=== PATIENT | male | born 1970 | race Caucasian/White ===

== ENCOUNTER → 2020-01-06 15:30 | Outpatient (BNVA) | payer BC, SELFPAY | PROVIDERS: PCP Internal Medicine; Referring Provider Internal Medicine; Visit Provider Surgery Vascular Surgery | DX: Z76.89 Persons encountering health services in other specified circumstances (principal) ==

== ENCOUNTER → 2020-02-25 08:38 | Outpatient (BNVA) | payer BC, SELFPAY | PROVIDERS: PCP Internal Medicine; Referring Provider Internal Medicine; Visit Provider Surgery Vascular Surgery | DX: I83.12 Varicose veins of left lower extremity with inflammation (principal) | CPT/HCPCS: 36482 ==

== ENCOUNTER 2020-02-28 08:09 | Outpatient (REF) | payer BC, SELFPAY ==
--- NOTE | 2020-02-28 | US_ITS ---
EXAMINATION: US VENOUS ULTRASOUND WITH DOPPLER LOWER EXTREMITY, LEFT CLINICAL INFORMATION: Post venous procedure 3 days ago COMPARISON: Previous exam 02/23/2019 TECHNIQUE: Ultrasound of the deep veins is performed from the hip to the calf with compression sonography and color and pulse Doppler assessment. Spectral analysis with color-flow imaging is performed. FINDINGS: There is echogenic material seen in the left greater saphenous vein post venous procedure. This is 4.2 cm from the saphenofemoral junction. The visualized common femoral vein, superficial femoral vein, profunda femoral vein, popliteal vein, and the trifurcation region shows no evidence of deep venous thrombosis. There is no significant popliteal fossa cyst. There is a left inguinal lymphadenopathy. US/US venous duplex LE LT IMPRESSION: No DVT demonstrated in the left lower extremity. Echogenic material in the left greater saphenous vein 4.2 cm from the second the saphenofemoral junction post venous procedure.
== END 2020-02-28 08:10 | disposition home or self-care (01) ==
LOC: HO.US 08:09
PROVIDERS: PCP Internal Medicine; Visit Provider Surgery Vascular Surgery
DX: M79.604 Pain in right leg (principal)
CPT/HCPCS: 93971

== ENCOUNTER → 2020-03-09 14:56 | Outpatient (BNVA) | payer BC, SELFPAY | PROVIDERS: PCP Internal Medicine; Visit Provider Surgery Vascular Surgery | DX: Z76.89 Persons encountering health services in other specified circumstances (principal) ==

== ENCOUNTER → 2020-03-10 14:44 | Outpatient (BNVA) | payer BC, SELFPAY | PROVIDERS: PCP Internal Medicine; Referring Provider Internal Medicine; Visit Provider Surgery Vascular Surgery | DX: I83.891 Varicose veins of right lower extremity with other complications (principal) | CPT/HCPCS: 36482 ==

== ENCOUNTER 2020-03-13 15:52 | Outpatient (REF) | payer BC, SELFPAY ==
--- NOTE | 2020-03-13 | US_ITS ---
EXAMINATION: US VENOUS ULTRASOUND WITH DOPPLER LOWER EXTREMITY, RIGHT CLINICAL INFORMATION: Post venous seal. Rule out DVT. COMPARISON: Previous exam most recent February 2019 TECHNIQUE: Ultrasound of the deep veins is performed from the hip to the calf with compression sonography and color and pulse Doppler assessment. Spectral analysis with color-flow imaging is performed. FINDINGS: There is normal venous compression and respiratory variation and augmented flow. The visualized common femoral vein, superficial femoral vein, profunda femoral vein, popliteal vein, and the trifurcation region shows no evidence of deep venous thrombosis. There is echogenic material seen in the right greater saphenous vein post venous seal procedure. This is 5 cm from the saphenofemoral junction. There is no significant popliteal fossa cyst. US/US venous duplex LE RT IMPRESSION: No DVT demonstrated in the right lower extremity.
== END 2020-03-13 15:53 | disposition home or self-care (01) ==
LOC: HO.US 15:52
PROVIDERS: Visit Provider Surgery Vascular Surgery
DX: M79.604 Pain in right leg (principal)
CPT/HCPCS: 93971

== ENCOUNTER 2021-06-01 18:05 | Emergency (ER) | payer MEDICAID, SELFPAY ==
[2021-06-01 18:28] VITALS: BP 123/72; PULSE 95; RESP 20; TEMP 36.8; O2SAT 96; BMI 37.2
--- NOTE | 2021-06-01 19:11 | ED.ALLEREA ---
HPI - Allergic Reaction General Chief complaint: Allergic Reaction <Amber MunozGRISEL - Last Filed: 06/01/21 20:50> Stated complaint: severe rash spreading all over body <Amber MunozGRISEL - Last Filed: 06/01/21 20:50> Time Seen by Provider: 06/01/21 19:09 <Amber Vizcaino GRISEL Munoz - Last Filed: 06/01/21 20:50> Source: patient <Amber MunozGRISEL - Last Filed: 06/01/21 20:50> Mode of arrival: ambulatory <Amber MunozGRISEL - Last Filed: 06/01/21 20:50> Limitations: no limitations <Amber MunozGRISEL - Last Filed: 06/01/21 20:50> History of Present Illness HPI narrative: Patient is a 50-year-old male with a past medical history of type 1 diabetes. He presents emergency department for evaluation of a diffuse body rash. He states for about 2 weeks he has had a red in itching rash to the bilateral lower extremities from his knees with ankle the bilateral arms, chest, and upper back. He has been applying different lotions without significant improvement. He has not tried any cortisone cream for this. States no new medications, no new laundry detergents, body washes, recent antibiotic usage. In addition, he reports an area of pain, redness, and swelling to his right lower abdomen where a previous continuous glucose monitor was placed. <Amber FossGRISEL macdonald - Last Filed: 06/01/21 20:50> Related Data Home medications: Home Medications Medication Instructions Recorded Confirmed amlodipine 10 mg tablet 10 mg PO DAILY 12/18/19 blood-glucose sensor #3 ea 12/18/19 blood-glucose transmitter #1 ea 12/18/19 carvedilol 3.125 mg tablet mg PO 12/18/19 collagenase clostridium histo. 250 TOPICAL 12/18/19 unit/gram topical ointment insulin glargine 100 unit/mL (3 35 unit SUBCUT BID 12/18/19 mL) subcutaneous pen insulin lispro 100 unit/mL unit SUBCUT 12/18/19 subcutaneous pen lisinopril 20 1 tab PO DAILY 12/18/19 mg-hydrochlorothiazide 12.5 mg tablet pen needle, diabetic 32 gauge x #50 ea 12/18/19 silver sulfadiazine 1 % topical applic TOPICAL 12/18/19 cream simvastatin 20 mg tablet 20 mg PO BEDTIME 12/18/19 sulfamethoxazole 800 1 tab PO BID 12/18/19 mg-trimethoprim 160 mg tablet Previous Rx's Medication Instructions Recorded doxycycline hyclate 100 mg capsule 100 mg PO BID 7 Days #14 cap 06/01/21 hydroxyzine HCl 25 mg tablet 25 mg PO TID PRN #14 tab 06/01/21 prednisone 20 mg tablet 40 mg PO DAILY 4 Days #8 tab 06/01/21 <Amber Munoz CNP - Last Filed: 06/01/21 20:50> Allergies/adverse reactions: Allergies Allergy/AdvReac Type Severity Reaction Status Date / Time penicillin G Allergy Unknown Unknown Verified 06/01/21 18:27 <Amber Munoz CNP - Last Filed: 06/01/21 20:50> Review of Systems Review of Systems: Constitutional : No Fever, No Chills ENT/Mouth : No oral swelling, No Hoarseness, No Swallowing Difficulty Eyes: No Eye Pain, No Swelling, No Redness Cardiovascular : No Chest Pain, No SOB Respiratory : No Cough, No Sputum, No Wheezing, No Smoke Exposure, No Dyspnea Gastrointestinal : No Nausea, No Vomiting, No Diarrhea, No abdominal Pain Genitourinary : No Dysuria, No Urinary Frequency, No Hematuria Musculoskeletal : No joint pain, No Myalgias, No Joint Swelling Skin : No Skin Lesions, positive rash Neuro : No Weakness, No Numbness, No Headache Psych : No Anxiety/Panic, No Depression Heme/Lymph: No Bruising, No Lymphadenopathy Endocrine : No Polyuria, No Polydipsia All other systems reviewed and are negative <Amber Munoz CNP - Last Filed: 06/01/21 20:50> ON LICENSE OF [facility] Past Medical History Attestation statement: The following information was validated with the patient. <Amber Munoz CNP - Last Filed: 06/01/21 20:50> Source: old records reviewed <Amber Munoz CNP - Last Filed: 06/01/21 20:50> Social History Social History: Social History Advance Directives: No Advance Directives Information Provided: No <Amber Munoz CNP - Last Filed: 06/01/21 20:50> Physical Exam ED Vital Signs: Vital Signs - 24 hr 06/01/21 18:28 06/01/21 20:56 Temperature 98.3 F 97.8 F Pulse Rate 95 83 Respiratory Rate 20 18 Blood Pressure 123/72 133/61 Pulse Oximetry 96 94 BMI result Body Mass Index 37.2 Vital signs have been reviewed as normal and appeared to be correct. Blood pressure normal.? Heart rate normal.? Respiration rate normal. Temperature normal.? Oxygen saturation normal. <Amber Munoz CNP - Last Filed: 06/01/21 20:50> Appearance: Alert.?Oriented to person, place and time. No acute distress.?Normal affect. Eyes: Pupils equal, round and reactive to light.? ENT: Pharynx normal. no intraoral lesions Neck: Normal inspection.? Neck supple.?? CVS: Heart sounds normal. Normal heart rate and rhythm.? Pulses normal.?? Respiratory: No respiratory distress.? Lung sounds clear to auscultation bilaterally?? Abdomen: Soft and non-tender. Normoactive bowel sounds. No pulsatile mass.?? Skin: Maculopapular rash to the bilateral arms, anterior chest, upper back, bilateral lower extremities from knee to ankle. Linear abrasions from scratching. Right lower abdomen with 4 cm X 2 cm erythematous indurated area consistent with cellulitis.?? Extremities: No lower extremity edema.? No calf ttp? Neuro: Moves all extremities spontaneously. Sensation intact bilaterally. CN II-XII intact. No focal neuro deficits. Ambulates with normal steady gait. <Amber Munoz CNP - Last Filed: 06/01/21 20:50> Course Course Course Narrative: Patient is a 50-year-old male being evaluated for a diffuse body rash. This time, it is unclear the exact cause of his rash, however there is no acute concern for angio edema, urticaria, anaphylaxis he is stable, no respiratory distress, speaking in clear full sentences and managing secretions appropriately. History and physical exam are not consistent with Kedar Todd syndrome, erythema multiform, necrotizing fasciitis, no meningismus to suggest meningitis. Discussed with patient plan of care for discharge home with doxycycline for treatment of cellulitis to the abdomen, hydroxyzine for pruritis, and prednisone daily for 5 days for his rash, discussed possible hyperglycemia that was associated with steroid usage, and may require additional adjustments of his continuous insulin infusion. Advised patient to contact primary care provider to schedule follow-up appointment within 3 days. discussed reasons to return to the emergency department <Amebr Munoz CNP - Last Filed: 06/01/21 20:50> MDM - Allergic Reaction Lab Data Result diagrams: : 06/01/21 19:34 06/01/21 19:34 <Amber Munoz CNP - Last Filed: 06/01/21 20:50> Labs: Lab Results 06/01/21 06/01/21 Range/Units 19:34 19:34 WBC 10.5 (4.8-10.8) X10*3/uL RBC 5.11 (4.60-5.80) X10*6/uL Hgb 14.7 (14.0-18.0) g/dl Hct 43.0 (42.0-52.0) % MCV 84.1 (80.0-98.0) fL MCH 28.8 (27.0-33.0) pg MCHC 34.2 (31.0-36.0) g/dl RDW 12.8 (11.0-16.0) % Plt Count 281 (160-400) X10*3/uL MPV 9.7 (9.4-12.4) fL Immature Gran % (Auto) 0.5 H (0.0-0.4) % Neut % (Auto) 63.0 (45-73) % Lymph % (Auto) 20.2 (20-40) % Turner % (Auto) 9.7 (2-11) % Eos % (Auto) 5.7 H (0-4) % Baso % (Auto) 0.9 (0-2) % Lymph # (Auto) 2.1 (1.2-4.9) X10*3/uL Turner # (Auto) 1.0 (0.1-1.2) X10*3/uL Eos # (Auto) 0.6 H (0.0-0.4) X10*3/uL Baso # (Auto) 0.1 (0.0-0.2) X10*3/uL Abs Immat Gran (auto) 0.05 H (0.00-0.03) X10*3/uL Absolute Neuts (auto) 6.6 (2.0-8.3) x10*3/uL Absolute Nucleated RBC 0.000 (0.0-0.012) X10*3/uL Nucleated RBC % (auto) 0.0 (0.0-0.2) /100WBC Sodium 141 (135-145) mmol/L Potassium 3.7 (3.3-5.1) mmol/L Chloride 104 (96-108) mmol/L Carbon Dioxide 28 (22-29) mmol/L Anion Gap 13 (12-20) BUN 18 H (9-16) mg/dL Creatinine 0.83 (0.5-1.4) mg/dL Estim Creat Clear Calc 150.1 Estimated GFR > 60 Random Glucose 159 H (60-115) mg/dL Calcium 9.3 (8.4-10.2) mg/dL Total Bilirubin 0.5 (0.0-1.0) mg/dL AST 18 (5-37) U/L ALT 17 (0-40) U/L Alkaline Phosphatase 101 (39-117) U/L Total Protein 7.4 (6.5-8.0) g/dL Albumin 4.2 (3.5-5.0) g/dL <Amber Munoz CNP - Last Filed: 06/01/21 20:50> Discharge Plan Discharge Clinical Impression: Generalized maculopapular rash, Cellulitis <Amber Munoz CNP - Last Filed: 06/01/21 20:50> Patient Disposition: Home, Self-Care <Amber Munoz CNP - Last Filed: 06/01/21 20:50> Instructions: Cellulitis (ED), Acute Rash (ED) <Amber Munoz CNP - Last Filed: 06/01/21 20:50> Additional Instructions: You are being treated for a rash present to your chest arms and legs with prednisone 40 mg which you will take once a day for total of 5 days, you were given the 1st dose while you were in the emergency department. Please be aware that your blood sugar levels may rise higher than normal due to taking the prednisone, you may require adjustment of your insulin for this. You may take hydroxyzine as needed for itching, although it may make you drowsy similar to Benadryl, you should not take this medication while driving or while working. In addition, your being treated for cellulitis, a skin infection on your abdomen, where your previous glucose monitor was. Please take doxycycline twice a day for 7 days, take the full course of the antibiotics, take with food to prevent upset stomach. Please return to the emergency department with any new or worsening symptoms. Should you develop hoarseness of your voice, feeling of your throat closing, sore throat, difficulty breathing, shortness of breath, chest pain please come back to the emergency department immediately. Please contact your primary care provider to schedule a follow-up appointment for early next week. <Amber Munoz CNP - Last Filed: 06/01/21 20:50> Prescriptions: New doxycycline hyclate 100 mg capsule 100 mg PO BID 7 Days Qty: 14 0RF prednisone 20 mg tablet 40 mg PO DAILY 4 Days Qty: 8 0RF hydroxyzine HCl 25 mg tablet 25 mg PO TID PRN (Reason: itching) Qty: 14 0RF <Amber Munoz CNP - Last Filed: 06/01/21 20:50> Interventions: ED Discharge Assessment Last Done: 06/01/21 21:29 <Amber Munoz CNP - Last Filed: 06/01/21 20:50> Discharge Date/Time: 06/01/21 21:30 <Amber Munoz CNP - Last Filed: 06/01/21 20:50>
[2021-06-01] MEDS: predniSONE 20 MG TABLET 40 MG PO (19:28)
[2021-06-01 19:39] LABS: MANUAL DIFF FLAG NO
[2021-06-01 19:41] LABS: Basophils Absolute Auto 0.1 X10*3/uL (0.0-0.2); Basophils Percent Auto 0.9 % (0-2); Eosinophils Absolute Auto 0.6 X10*3/uL (0.0-0.4); Eosinophils Percent Auto 5.7 % (0-4); Hemoglobin 14.7 g/dl (14.0-18.0); Imm Gran Abs Auto 0.05 X10*3/uL (0.00-0.03); Imm Gran Pct Auto 0.5 % (0.0-0.4); Lymphocytes Absolute Auto 2.1 X10*3/uL (1.2-4.9); Lymphocytes Percent Auto 20.2 % (20-40); Mean Corpuscular HGB Conc 34.2 g/dl (31.0-36.0); Mean Corpuscular Hemoglobin 28.8 pg (27.0-33.0); Mean Corpuscular Volume 84.1 fL (80.0-98.0); Mean Platelet Volume 9.7 fL (9.4-12.4); Monocytes Percent Auto 9.7 % (2-11); Neutrophils Absolute Auto 6.6 x10*3/uL (2.0-8.3); Platelet Count 281 X10*3/uL (160-400); Red Blood Count 5.11 X10*6/uL (4.60-5.80); Red Cell Distribution Width 12.8 % (11.0-16.0); White Blood Count 10.5 X10*3/uL (4.8-10.8)
[2021-06-01 20:40] LABS: Alanine Aminotransferase 17 U/L (0-40); Albumin Level 4.2 g/dL (3.5-5.0); Alkaline Phosphatase 101 U/L (39-117); Anion Gap 13 (12-20); Aspartate Amino Transferase 18 U/L (5-37); Bilirubin Total 0.5 mg/dL (0.0-1.0); Blood Urea Nitrogen 18 mg/dL (9-16); Calcium 9.3 mg/dL (8.4-10.2); Carbon Dioxide 28 mmol/L (22-29); Chloride 104 mmol/L (96-108); Creatinine Clr Calc Pharmacy 150.1; Estimated Glomerular Filt Rate > 60; Glucose Random 159 mg/dL (60-115); Potassium 3.7 mmol/L (3.3-5.1); Sodium 141 mmol/L (135-145); Total Protein 7.4 g/dL (6.5-8.0)
[2021-06-01 20:56] VITALS: BP 133/61; PULSE 83; RESP 18; TEMP 36.6; O2SAT 94
== END 2021-06-01 21:30 | disposition home or self-care (01) ==
PROVIDERS: Nurse Practitioner Family; Emergency Provider Emergency Medicine; PCP Nurse Practitioner Family
DX: L03.311 Cellulitis of abdominal wall (principal); R21 Rash and other nonspecific skin eruption; E10.9 Type 1 diabetes mellitus without complications
CPT/HCPCS: 36415; 80053; 85025; 99283; 99284

== ENCOUNTER 2021-11-11 10:46 | Emergency (ER) | payer OTHER, SELFPAY ==
--- NOTE | ~2021-11-11 | XR_ITS ---
EXAMINATION: XR KNEE, LEFT CLINICAL INFORMATION: Impact injury. COMPARISON: None TECHNIQUE: Four views of the left knee. FINDINGS: Bones and soft tissues are normal. No fracture or joint effusion. Alignment is anatomic. Joint spaces are well maintained. No abnormal soft tissue calcification. XR/XR knee LT 2V IMPRESSION: Unremarkable left knee.
[2021-11-11 12:18] VITALS: BP 141/78; PULSE 88; RESP 22; TEMP 36.3; O2SAT 97; BMI 36.2
[2021-11-11 15:12] VITALS: BP 132/69; PULSE 88; RESP 18; TEMP 36.8; O2SAT 95
--- NOTE | 2021-11-11 15:17 | ED_ITS ---
HPI - General Adult General Chief complaint: Extremity Injury, Lower Stated complaint: L leg pain Time Seen by Provider: 11/11/21 15:16 Source: patient Mode of arrival: ambulatory Limitations: no limitations History of Present Illness HPI narrative: Patient is a 51 year old male presenting to the emergency department today with left lower leg pain. Patient states that he works at [employer] and a feeding tub fell onto his left lower leg. Patient states that he has been able to ambulate but it seems to be getting worse. Patient denies any dizziness, lightheadedness, abdominal pain, nausea, vomiting, fever, chills, blurry vision, double vision, loss of vision, chest pain, difficulty breathing, shortness of breath, back pain, night sweats, pain with urination, increased urinary frequency, increased urinary urgency, blood in his urine or stool, syncope or a near syncopal episode, bowel incontinence, bladder incontinence, bowel retention, bladder retention, or any other complaints at this time. Onset (ago): day(s) (1) Location: left and lower extremity Radiation: non-radiation Severity: mild Severity scale (1-10): 2 Quality: dull Pain Consistency: constant Relieving factors: none Exacerbating factors: none Associated symptoms: denies other symptoms Treatments prior to arrival: none Related Data Home Medications Medication Instructions Recorded Confirmed amlodipine 10 mg tablet 10 mg PO DAILY 12/18/19 blood-glucose sensor #3 12/18/19 blood-glucose transmitter #1 12/18/19 carvedilol 3.125 mg tablet mg PO 12/18/19 collagenase clostridium histo. 250 topical 12/18/19 unit/gram topical ointment insulin glargine 100 unit/mL (3 35 unit subcut BID 12/18/19 mL) subcutaneous pen insulin lispro 100 unit/mL unit subcut 12/18/19 subcutaneous pen lisinopril 20 1 tab PO DAILY 12/18/19 mg-hydrochlorothiazide 12.5 mg tablet pen needle, diabetic 32 gauge x #50 ea 12/18/19 silver sulfadiazine 1 % topical applic topical 12/18/19 cream simvastatin 20 mg tablet 20 mg PO BEDTIME 12/18/19 sulfamethoxazole 800 1 tab PO BID 12/18/19 mg-trimethoprim 160 mg tablet Previous Rx's Medication Instructions Recorded doxycycline hyclate 100 mg capsule 100 mg PO BID 7 days #14 caps 06/01/21 hydroxyzine HCl 25 mg tablet 25 mg PO TID PRN itching #14 tabs 06/01/21 prednisone 20 mg tablet 40 mg PO DAILY 4 days #8 tabs 06/01/21 Allergies Allergy/AdvReac Type Severity Reaction Status Date / Time penicillin G Allergy Unknown Unknown Verified 06/01/21 18:27 Review of Systems Constitutional: Constitutional: Reports no additional constitutional complaints, Denies chills, Denies fever(s) and Denies night sweats Eyes: Eyes: Reports no additional eye complaints, Denies blurry vision, Denies change in vision, Denies diplopia, Denies eye discharge, Denies loss of vision and Denies eye pain ENT: Denies dizziness Cardiovascular: Cardiovascular: Reports no additional cardiovascular c omplaints, Denies chest pain, Denies lightheadedness, Denies Loss of Consciousness and Denies dyspnea Respiratory: Respiratory: Reports no additional respiratory complaints and Denies dyspnea Gastrointestinal: Gastrointestinal: Reports no additional gastrointestinal complaints, Denies abdominal pain, Denies melena, Denies hematochezia, Denies change in bowel habits and Denies change in stool character Genitourinary: Genitourinary: Reports no additional male genitourinary complaints, Denies hematuria, Denies oliguria, Denies difficulty urinating, Denies dysuria, Denies urinary frequency, Denies urinary hesitancy, Denies urinary incontinence and Denies urinary urgency Musculoskeletal: Musculoskeletal: Reports no additional musculoskeletal complaints, Denies numbness and Denies tingling Comments: left lower leg Neurologic: Denies dizziness, Denies loss of vision, Denies numbness and Denies tingling Psychiatric: Psychiatric: Reports no additional psychiatric complaints Endocrine: Endocrine: Reports no additional endocrine complaints Hematologic/Lymphatic: Hematologic/Lymphatic: Reports no additional hematologic/lymphatic complaints Allergic/Immunologic: Allergic/Immunologic: Reports no additional allergic/immunologic complaints PMFSH Past Medical History Attestation statement: The following information was validated with the patient. Source: old records reviewed Social History Social History Advance Directives: No Advance Directives Information Provided: No Physical Exam ED Vital Signs: Vital Signs - 24 hr 11/11/21 12:18 11/11/21 15:12 Temperature 97.4 F 98.3 F Pulse Rate 88 88 Respiratory Rate 22 H 18 Blood Pressure 141/78 H 132/69 Pulse Oximetry 97 95 Oxygen Delivery Method Room Air Room Air BMI result Body Mass Index 36.2 Const General: cooperative, no acute distress, alert and awake Nutritional Appearance: well nourished Orientation/consciousness: patient oriented x3 Limitations: no limitations HENMT Head: Yes normal to inspection and Yes atraumatic Ears: hearing grossly normal bilaterally and external ears normal General nose exam: Normal external nose present, no nasal discharge noted and no epistaxis Face and sinus: Yes normal facial exam, No abrasion and No laceration Mouth: Normal oral and palatal mucosa present, no drooling and no muffled voice Eyes General: appearance normal, both eyes and all related structures Periorbital: periorbital findings normal Eyelids: Yes eyelids normal Conjunctivae: conjunctivae normal Pupils: Equal, round and reactive pupils present EOM: EOMs intact bilaterally Neck Neck: Yes normal visual inspection, Yes full ROM and Yes no lymphadenopathy Chest Chest palpation & inspection: normal inspection of the chest Resp Effort & Inspection: normal respiratory effort and able to speak in complete sentences Auscultation: clear to auscultation bilaterally Cardio Rate: regular rate Rhythm: regular rhythm GI Inspection: Yes normal to inspection Skin Other: bilateral venous stasis dermatitis, chronic for the patient Neuro General: patient oriented x3 and moves all extremities Cranial nerves: Yes Equal, round and reactive pupils present Cognition (Neuro): normal cognition Motor exam (neuro): 5/5 motor strength present throughout Sensory Exam: Normal double simultaneous stimulation for sensation Coordination: [id number] test normal Extrem General: Yes normal to inspection, Yes full ROM and Yes capillary refill normal Psych Appearance: grossly normal Mental Status: mental status grossly normal Affect: normal affect Attitude: cooperative Thought process: Normal thought process present Thought content: Normal thought content present Insight: Good insight present (Psych) Procedures Orthopedic Splinting/Casting Injury #1: Side: left Lower Extremity Injury Location: knee Lower Extremity Immobilizer: knee immobilizer Other Orthopedic Equipment: crutches Medical Decision Making [facility] Narrative Medical decision making narrative: Patient is a 51 year old male presenting to the emergency department today with left lower leg pain. Patient's physical exam showed bilateral lower leg venous stasis dermatitis which is chronic for the patient but was otherwise unremarkable. Patient's left knee x-ray showed no acute process. I explained my physical exam findings as well as all test results to the patient. I answered all questions asked by the patient. Patient's left knee was placed in an immobilizer and the patient was given crutches with crutch instructions. Patient's PMS was intact prior to and after immobilizer placement. I stressed the importance of the patient taking his medication as prescribed. I stressed the importance of the patient following up with his primary care provider and an orthopedic provider. I stressed the importance of the patient returning to the emergency department immediately if his symptoms were to worsen or if he were to develop any dizziness, shortness of breath, difficulty breathing, chest pain, blurry vision, loss of vision, nausea, vomiting, abdominal pain, fever, chills, back pain, or any other complaints. Patient verbalized agreement and understanding with this treatment plan and discharge. Differential Diagnosis Differential Diagnosis: left lower leg pain Medical Records Medical records reviewed: Yes I reviewed the patient's medical records. Imaging Data Left knee x-ray: Attestation: I personally reviewed and interpreted this imaging study as follows: My impression: No acute process. Radiologist's impression: EXAMINATION: XR KNEE, LEFT CLINICAL INFORMATION: Impact injury.? COMPARISON: None? TECHNIQUE: Four views of the left knee. FINDINGS: Bones and soft tissues are normal. No fracture or joint effusion. Alignment is anatomic. Joint spaces are well maintained. No abnormal soft tissue calcification.? XR/XR knee LT 2V IMPRESSION: Unremarkable left knee. Dictated By: Yosef Carter MD Signed By: Electronically signed by Yosef Carter MD 11/11/21 1340 Discharge Plan Discharge Clinical Impression: Acute leg pain Patient Disposition: Home, Self-Care Instructions: Crutch Instructions (ED), Leg Pain (ED) Additional Instructions: Follow up with your primary care provider and your orthopedic provider. Return to the emergency department immediately if your symptoms worsen or if you develop any dizziness, shortness of breath, difficulty breathing, chest pain, blurry vision, loss of vision, nausea, vomiting, abdominal pain, fever, chills, back pain, or any other complaints. Prescriptions: No Action doxycycline hyclate 100 mg capsule 100 mg PO BID 7 Days Qty: 14 0RF prednisone 20 mg tablet 40 mg PO DAILY 4 Days Qty: 8 0RF hydroxyzine HCl 25 mg tablet 25 mg PO TID PRN (Reason: itching) Qty: 14 0RF Referrals: [facility] [place] [facility] [Provider Group] (Call to establish and follow up with an orthopedic provider. ) Louisa Jason DO [Primary Care Provider] - Stand Alone Forms: Work/School Release Interventions: ED Discharge Assessment Last Done: 11/11/21 16:06 Discharge Date/Time: 11/11/21 16:06 Print Language: Palauan
--- NOTE | 2021-11-11 15:58 | PC.NURSE ---
splint and crutch training by Leo ESPOSITO and Joeclin ABEBE
== END 2021-11-11 16:06 | disposition home or self-care (01) ==
PROVIDERS: Emergency Provider Emergency Medicine; PCP Internal Medicine
DX: M25.562 Pain in left knee (principal); Z79.899 Other long term (current) drug therapy
CPT/HCPCS: 29505; 73560; 99282; 99283

== ENCOUNTER 2022-05-29 13:16 | Emergency (ER) | payer OTHER, SELFPAY ==
--- NOTE | ~2022-05-29 | CT_ITS ---
EXAMINATION: CT HEAD WITHOUT CONTRAST CLINICAL INFORMATION: Sudden onset left-sided headaches. COMPARISON: No relevant prior imaging. TECHNIQUE: Contiguous axial imaging was performed from the skull base to vertex without intravenous administration of contrast. This CT examination was performed using dose optimization techniques as appropriate, variously including the following: *Automated exposure control *Adjustment of mA and/or kV according to patient size (this includes techniques or standardized protocols for targeted exams where dose is matched to indication/reason for exam; i.e. extremities or head) *Use of iterative reconstruction technique DLP: 848 mGy-cm FINDINGS: There is no acute intracranial hemorrhage or abnormal extra-axial collection. No intracranial mass effect midline shift. Lateral and third ventricles are normal. No hydrocephalus. Ponce-white matter differentiation is preserved and there is no evidence of acute territorial infarct. The calvarium and skull base are intact. Mastoid air cells and middle ear cavities are well aerated. No active paranasal sinus disease. CT/CT head/brain wo IV con IMPRESSION: Normal CT scan of the head.
--- NOTE | ~2022-05-29 | XR_ITS ---
EXAMINATION: XR CHEST CLINICAL INFORMATION: Short of breath COMPARISON: None TECHNIQUE: 2 views of the chest were obtained. FINDINGS: The lungs are well expanded. There is no focal consolidation, edema, or effusion. No pneumothorax. The cardiomediastinal silhouette is within normal limits. No acute osseous abnormality. XR/XR chest 2V IMPRESSION: Clear lungs.
[2022-05-29 13:25] VITALS: BP 186/73; PULSE 85; RESP 16; TEMP 36.5; O2SAT 98; BMI 36.8
--- NOTE | 2022-05-29 13:40 | ECG_ITS ---
Test Reason : sob Blood Pressure : / mmHG Vent. Rate : 083 BPM Atrial Rate : 083 BPM P-R Int : 126 ms QRS Dur : 092 ms QT Int : 402 ms P-R-T Axes : 043 050 056 degrees QTc Int : 472 ms Normal sinus rhythm Normal ECG No previous ECGs available Referred By: Ford Wan Electronically Signed By:ISSA MADSEN
--- NOTE | 2022-05-29 13:43 | ED.GENADULT ---
HPI - General Adult General Chief complaint: Headache Stated complaint: S/O LT SIDED HEADACHE,-BLURRED VISION,+DIZZY Time Seen by Provider: 05/29/22 13:27 Source: patient and old records reviewed Limitations: no limitations History of Present Illness HPI narrative: Patient with a history of longstanding hypertension and type 1 diabetes, presents with sudden-onset headache started approximately an hour prior to arrival. No prior history of headaches. He states it felt like someone punched him in the left side of his head. He states he was talking to customers at the [employer] at the time. No strenuous physical activity recently Was initially in his left temporal area but now feels is like a more dull pain in top of his head No neck pain He had some photophobia at the bank. No actual vision changes such as blurriness or visual defect. He denies any focal weakness. No recent traumas No recent fevers or chills. He does describe pain increased dyspnea with minimal exertion over the past few months. He describes some abdominal bloating which is new over the last few months as well. No nausea vomiting or abdominal pain. No significant pedal edema. He denies chest pain. No history of cardiac disease, congestive heart failure, liver disease, renal disease. No history of aneurysm for family history of aneurysm of which he is aware. Related Data Home Medications Medication Instructions Recorded Confirmed amlodipine 10 mg tablet 10 mg PO DAILY 12/18/19 blood-glucose sensor #3 ea 12/18/19 blood-glucose transmitter #1 ea 12/18/19 carvedilol 3.125 mg tablet mg PO 12/18/19 collagenase clostridium histo. 250 topical 12/18/19 unit/gram topical ointment insulin glargine 100 unit/mL (3 35 unit subcut BID 12/18/19 mL) subcutaneous pen insulin lispro 100 unit/mL unit subcut 12/18/19 subcutaneous pen lisinopril 20 1 tab PO DAILY 12/18/19 mg-hydrochlorothiazide 12.5 mg tablet pen needle, diabetic 32 gauge x #50 ea 12/18/19 silver sulfadiazine 1 % topical applic topical 12/18/19 cream simvastatin 20 mg tablet 20 mg PO BEDTIME 12/18/19 sulfamethoxazole 800 1 tab PO BID 12/18/19 mg-trimethoprim 160 mg tablet Previous Rx's Medication Instructions Recorded doxycycline hyclate 100 mg capsule 100 mg PO BID 7 days #14 caps 06/01/21 hydroxyzine HCl 25 mg tablet 25 mg PO TID PRN itching #14 tabs 06/01/21 prednisone 20 mg tablet 40 mg PO DAILY 4 days #8 tabs 06/01/21 Allergies Allergy/AdvReac Type Severity Reaction Status Date / Time penicillin G Allergy Unknown Unknown Verified 06/01/21 18:27 Review of Systems Constitutional: Comments: No fevers or chills. Some increased generalized fatigue and weight gain Eyes: Comments: Initially had some photophobia while he was still at work at the [employer]. Denies photophobia now. Cardiovascular: Comments: No chest pain Respiratory: Comments: Dyspnea with minimal exertion which is new over the last few months Gastrointestinal: Comments: Abdominal distension and bloating without pain or nausea or vomiting or diarrhea Musculoskeletal: Comments: No increased pedal edema. Chronic diabetic neuropathy Integumentary/Breasts: Comments: No rash Neurologic: Comments: Headache as mentioned. Left-sided without focal weakness. Sudden onset Hematologic/Lymphatic: Comments: No bleeding. He does not take aspirin or blood thinners [facility] Social History Social History Smoked in Last 30 Days: No Use of substances other than those prescribed or required for medical reasons: No Any prior treatment program specific to substance use: No Advance Directives: Yes Advance Directives Information Provided: No Advance Directives on File: No Physical Exam ED Vital Signs: Vital Signs - 24 hr 05/29/22 13:25 05/29/22 16:35 Temperature 97.7 F Pulse Rate 85 73 Respiratory Rate 16 18 Blood Pressure 186/73 H 154/77 H Pulse Oximetry 98 96 Oxygen Delivery Method Room Air Room Air BMI result Body Mass Index 36.8 Const Other: Awake alert. No acute distress. Vital signs stable but hypertensive at 186/73 HENGA Other: Normocephalic atraumatic. Scalp is nontender in the area where he complains of discomfort Eyes Other: Pupils equal round reactive to light. Extraocular muscles intact. No photophobia noted Neck Other: No meningismus. Full range of motion without difficulty Resp Other: Clear and equal bilaterally without wheezes rales or rhonchi Cardio Other: Regular rate and rhythm without murmurs rubs or gallops GI Other: Soft, nontender. Diffuse distension. Small soft 2.5 cm umbilical hernia, reducible. No significant tympany Skin Other: Warm pink and dry without rash. No jaundice Neuro Other: Nonfocal neuro exam Extrem Other: Bilateral chronic venous stasis changes without significant edema Medications Administered Discontinued Medications Generic Name Dose Route Start Last Admin Trade Name Kathleen PRN Reason Stop Dose Admin Acetaminophen 650 mg 05/29/22 13:40 05/29/22 14:06 Acetaminophen 325 Mg Tablet PO 05/29/22 13:41 650 mg ONCE ONE Administration Medical Decision Making Medical Decision Making [facility] Narrative: Patient with several different complaints. Main issue is sudden onset headache in a patient without a history of headaches. Intracranial hemorrhage especially subarachnoid hemorrhage is a concern. Given timeline, CT scan should be very sensitive with a very high negative predictive value. Will start with CT scan in general metabolic workup. He also has been having increased dyspnea and fatigue over the last several months with abdominal bloating. The differential diagnosis is broad and includes but not limited to congestive heart failure, liver disease, renal failure, deconditioning, hypothyroid, anemia Will start with broad workup including EKG, cardiac enzymes, x-ray, thyroid studies, metabolic panel, CBC white. 14:06. Chest x-ray is unremarkable by my interpretation. EKG shows normal sinus rhythm without ischemic changes. Normal EKG. By my interpretation 16:40. CT scan is normal. I discussed with patient sensitivity specificity of CT scan for intracranial hemorrhage specifically subarachnoid hemorrhage within 4 hours of presentation. We discussed risk benefit of lumbar puncture. At this time I do not feel the benefits of an LP outweigh the risk. Patient agrees. His pain is largely resolved after Tylenol. He is stable for discharge home Lab Data 05/29/22 14:32 05/29/22 14:24 Labs: Lab Results 05/29/22 05/29/22 05/29/22 Range/Units 14:19 14:20 14:20 WBC (4.8-10.8) X10*3/uL RBC (4.60-5.80) X10*6/uL Hgb (14.0-18.0) g/dl Hct (42.0-52.0) % MCV (80.0-98.0) fL MCH (27.0-33.0) pg MCHC (31.0-36.0) g/dl RDW (11.0-16.0) % Plt Count (160-400) X10*3/uL MPV (9.4-12.4) fL Immature Gran % (Auto) (0.0-0.4) % Neut % (Auto) (45-73) % Lymph % (Auto) (20-40) % [place] % (Auto) (2-11) % Eos % (Auto) (0-4) % Baso % (Auto) (0-2) % Lymph # (Auto) (1.2-4.9) X10*3/uL [place] # (Auto) (0.1-1.2) X10*3/uL Eos # (Auto) (0.0-0.4) X10*3/uL Baso # (Auto) (0.0-0.2) X10*3/uL Abs Immat Gran (auto) (0.00-0.03) X10*3/uL Absolute Neuts (auto) (2.0-8.3) x10*3/uL Absolute Nucleated RBC (0.0-0.012) X10*3/uL Nucleated RBC % (auto) (0.0-0.2) /100WBC PT 11.1 (10.0-13.1) SEC INR 1.0 (0.9-1.1) D-Dimer High Sensitivty 185 NG/ML Sodium (135-145) mmol/L Potassium (3.3-5.1) mmol/L Chloride (96-108) mmol/L Carbon Dioxide (22-29) mmol/L Anion Gap (12-20) BUN (9-16) mg/dL Creatinine (0.5-1.4) mg/dL Estim Creat Clear Calc Estimated GFR Random Glucose (60-115) mg/dL Calcium (8.4-10.2) mg/dL Total Bilirubin (0.0-1.0) mg/dL AST (5-37) U/L ALT (0-40) U/L Alkaline Phosphatase (39-117) U/L Ammonia 34 (13-55) umol/L Troponin I High Sens (<3.5-35.0) ng/L B-Natriuretic Peptide (<100) pg/mL Total Protein (6.5-8.0) g/dL Albumin (3.5-5.0) g/dL Lipase (8-78) U/L TSH 1.29 (0.32-4.0) uIU/mL Urine Color Urine Appearance Urine pH (5.0-9.0) Ur Specific [place] (1.005-1.025) Urine Protein (Neg-Trace) mg/dL Urine Glucose (UA) (Negative) mg/dL Urine Ketones (Negative) mg/dL Urine Blood (Negative) Urine Nitrite (Negative) Ur Leukocyte Esterase (Negative) COVID-19 (ÁNGELA) (Negative) COVID-19 Clin Com 05/29/22 05/29/22 05/29/22 Range/Units 14:22 14:24 14:24 WBC (4.8-10.8) X10*3/uL RBC (4.60-5.80) X10*6/uL Hgb (14.0-18.0) g/dl Hct (42.0-52.0) % MCV (80.0-98.0) fL MCH (27.0-33.0) pg MCHC (31.0-36.0) g/dl RDW (11.0-16.0) % Plt Count (160-400) X10*3/uL MPV (9.4-12.4) fL Immature Gran % (Auto) (0.0-0.4) % Neut % (Auto) (45-73) % Lymph % (Auto) (20-40) % [place] % (Auto) (2-11) % Eos % (Auto) (0-4) % Baso % (Auto) (0-2) % Lymph # (Auto) (1.2-4.9) X10*3/uL [place] # (Auto) (0.1-1.2) X10*3/uL Eos # (Auto) (0.0-0.4) X10*3/uL Baso # (Auto) (0.0-0.2) X10*3/uL Abs Immat Gran (auto) (0.00-0.03) X10*3/uL Absolute Neuts (auto) (2.0-8.3) x10*3/uL Absolute Nucleated RBC (0.0-0.012) X10*3/uL Nucleated RBC % (auto) (0.0-0.2) /100WBC PT (10.0-13.1) SEC INR (0.9-1.1) D-Dimer High Sensitivty NG/ML Sodium 141 (135-145) mmol/L Potassium 4.8 D (3.3-5.1) mmol/L Chloride 104 (96-108) mmol/L Carbon Dioxide 31 H (22-29) mmol/L Anion Gap 11 L (12-20) BUN 20 H (9-16) mg/dL Creatinine 0.99 (0.5-1.4) mg/dL Estim Creat Clear Calc 127.2 Estimated GFR > 60 Random Glucose 170 H (60-115) mg/dL Calcium 9.7 (8.4-10.2) mg/dL Total Bilirubin 0.4 (0.0-1.0) mg/dL AST 19 (5-37) U/L ALT 18 (0-40) U/L Alkaline Phosphatase 98 (39-117) U/L Ammonia (13-55) umol/L Troponin I High Sens < 3.5 (<3.5-35.0) ng/L B-Natriuretic Peptide (<100) pg/mL Total Protein 7.2 (6.5-8.0) g/dL Albumin 4.2 (3.5-5.0) g/dL Lipase 11 (8-78) U/L TSH (0.32-4.0) uIU/mL Urine Color Urine Appearance Urine pH (5.0-9.0) Ur Specific [place] (1.005-1.025) Urine Protein (Neg-Trace) mg/dL Urine Glucose (UA) (Negative) mg/dL Urine Ketones (Negative) mg/dL Urine Blood (Negative) Urine Nitrite (Negative) Ur Leukocyte Esterase (Negative) COVID-19 (ÁNGELA) Negative (Negative) COVID-19 Clin Com See Note 05/29/22 05/29/22 05/29/22 Range/Units 14:24 14:32 14:42 WBC 8.9 (4.8-10.8) X10*3/uL RBC 5.72 (4.60-5.80) X10*6/uL Hgb 16.1 (14.0-18.0) g/dl Hct 48.3 (42.0-52.0) % MCV 84.4 (80.0-98.0) fL MCH 28.1 (27.0-33.0) pg MCHC 33.3 (31.0-36.0) g/dl RDW 13.0 (11.0-16.0) % Plt Count 281 (160-400) X10*3/uL MPV 9.4 (9.4-12.4) fL Immature Gran % (Auto) 0.7 H (0.0-0.4) % Neut % (Auto) 65.8 (45-73) % Lymph % (Auto) 18.1 L (20-40) % [place] % (Auto) 11.4 H (2-11) % Eos % (Auto) 2.9 (0-4) % Baso % (Auto) 1.1 (0-2) % Lymph # (Auto) 1.6 (1.2-4.9) X10*3/uL [place] # (Auto) 1.0 (0.1-1.2) X10*3/uL Eos # (Auto) 0.3 (0.0-0.4) X10*3/uL Baso # (Auto) 0.1 (0.0-0.2) X10*3/uL Abs Immat Gran (auto) 0.06 H (0.00-0.03) X10*3/uL Absolute Neuts (auto) 5.8 (2.0-8.3) x10*3/uL Absolute Nucleated RBC 0.000 (0.0-0.012) X10*3/uL Nucleated RBC % (auto) 0.0 (0.0-0.2) /100WBC PT (10.0-13.1) SEC INR (0.9-1.1) D-Dimer High Sensitivty NG/ML Sodium (135-145) mmol/L Potassium (3.3-5.1) mmol/L Chloride (96-108) mmol/L Carbon Dioxide (22-29) mmol/L Anion Gap (12-20) BUN (9-16) mg/dL Creatinine (0.5-1.4) mg/dL Estim Creat Clear Calc Estimated GFR Random Glucose (60-115) mg/dL Calcium (8.4-10.2) mg/dL Total Bilirubin (0.0-1.0) mg/dL AST (5-37) U/L ALT (0-40) U/L Alkaline Phosphatase (39-117) U/L Ammonia (13-55) umol/L Troponin I High Sens (<3.5-35.0) ng/L B-Natriuretic Peptide < 10 (<100) pg/mL Total Protein (6.5-8.0) g/dL Albumin (3.5-5.0) g/dL Lipase (8-78) U/L TSH (0.32-4.0) uIU/mL Urine Color Yellow Urine Appearance Clear Urine pH 7.0 (5.0-9.0) Ur Specific [place] 1.015 (1.005-1.025) Urine Protein Negative (Neg-Trace) mg/dL Urine Glucose (UA) Negative (Negative) mg/dL Urine Ketones Negative (Negative) mg/dL Urine Blood Negative (Negative) Urine Nitrite Negative (Negative) Ur Leukocyte Esterase Negative (Negative) COVID-19 (ÁNGELA) (Negative) COVID-19 Clin Com Discharge Plan Discharge Clinical Impression: Headache Patient Disposition: Home, Self-Care Instructions: Acute Headache (ED) Prescriptions: No Action doxycycline hyclate 100 mg capsule 100 mg PO BID 7 Days Qty: 14 0RF prednisone 20 mg tablet 40 mg PO DAILY 4 Days Qty: 8 0RF hydroxyzine HCl 25 mg tablet 25 mg PO TID PRN (Reason: itching) Qty: 14 0RF Stand Alone Forms: Work/School Release
[2022-05-29] MEDS: Acetaminophen 325 MG TABLET 650 MG PO (14:06)
[2022-05-29 14:38] LABS: MANUAL DIFF FLAG NO
[2022-05-29 14:39] LABS: Basophils Absolute Auto 0.1 X10*3/uL (0.0-0.2); Basophils Percent Auto 1.1 % (0-2); Eosinophils Absolute Auto 0.3 X10*3/uL (0.0-0.4); Eosinophils Percent Auto 2.9 % (0-4); Hematocrit 48.3 % (42.0-52.0); Hemoglobin 16.1 g/dl (14.0-18.0); Imm Gran Abs Auto 0.06 X10*3/uL (0.00-0.03); Imm Gran Pct Auto 0.7 % (0.0-0.4); Lymphocytes Absolute Auto 1.6 X10*3/uL (1.2-4.9); Lymphocytes Percent Auto 18.1 % (20-40); Mean Corpuscular HGB Conc 33.3 g/dl (31.0-36.0); Mean Corpuscular Hemoglobin 28.1 pg (27.0-33.0); Mean Corpuscular Volume 84.4 fL (80.0-98.0); Mean Platelet Volume 9.4 fL (9.4-12.4); Monocytes Percent Auto 11.4 % (2-11); Neutrophils Absolute Auto 5.8 x10*3/uL (2.0-8.3); Neutrophils Percent Auto 65.8 % (45-73); Platelet Count 281 X10*3/uL (160-400); Red Blood Count 5.72 X10*6/uL (4.60-5.80); White Blood Count 8.9 X10*3/uL (4.8-10.8)
[2022-05-29 14:41] LABS: Ammonia 34 umol/L (13-55)
[2022-05-29 14:46] LABS: IDNOW Serial# BCCEAD1C
[2022-05-29 14:47] LABS: COVID-19 Test Negative (Negative)
[2022-05-29 14:51] LABS: Alanine Aminotransferase 18 U/L (0-40); Albumin Level 4.2 g/dL (3.5-5.0); Alkaline Phosphatase 98 U/L (39-117); Anion Gap 11 (12-20); Aspartate Amino Transferase 19 U/L (5-37); Bilirubin Total 0.4 mg/dL (0.0-1.0); Blood Urea Nitrogen 20 mg/dL (9-16); Calcium 9.7 mg/dL (8.4-10.2); Carbon Dioxide 31 mmol/L (22-29); Chloride 104 mmol/L (96-108); Creatinine Clr Calc Pharmacy 127.2; Estimated Glomerular Filt Rate > 60; Glucose Random 170 mg/dL (60-115); Lipase 11 U/L (8-78); Potassium 4.8 mmol/L (3.3-5.1); Sodium 141 mmol/L (135-145); Total Protein 7.2 g/dL (6.5-8.0)
[2022-05-29 14:52] LABS: Appearance Urine Clear; Color Urine Yellow; Glucose Urine UA Negative (Negative); Leukocyte Esterase Urine Negative (Negative); Nitrite Urine Negative (Negative); Specific Gravity - Urine 1.015 (1.005-1.025); Urine Blood Negative (Negative); Urine Ketones Negative (Negative); Urine Protein Negative (Neg-Trace)
[2022-05-29 14:56] LABS: B Type Natriuretic Peptide < 10 pg/mL (<100); Troponin-I High Sensitivity < 3.5 ng/L (<3.5-35.0)
[2022-05-29 15:07] LABS: Prothrombin Time 11.1 SEC (10.0-13.1)
[2022-05-29 15:08] LABS: D Dimer High Sensitivity 185 NG/ML
[2022-05-29 15:11] LABS: TSH reflex Free T4 1.29 uIU/mL (0.32-4.0)
--- NOTE | 2022-05-29 16:06 | PC.NURSE ---
assumed care of pt at 1600, pt resting quietly, reporting reduction in headache to 2/10, pt pending CT scan results - delay from radiology. no new orders at this time.
[2022-05-29 16:35] VITALS: BP 154/77; PULSE 73; RESP 18; O2SAT 96
--- NOTE | 2022-05-29 16:37 | PC.NURSE ---
pt a&ox3, vss - remains hypertensive, provider at bedside reviewing CT results, pt pending discharge.
== END 2022-05-29 17:05 | disposition home or self-care (01) ==
PROVIDERS: Emergency Provider Emergency Medicine; PCP Internal Medicine
DX: R51.9 Headache, unspecified (principal); R06.00 Dyspnea, unspecified; Z20.822 Contact with and (suspected) exposure to COVID-19; I10 Essential (primary) hypertension; E10.9 Type 1 diabetes mellitus without complications; Z79.4 Long term (current) use of insulin; Z79.899 Other long term (current) drug therapy
CPT/HCPCS: 36415; 70450; 71046; 80053; 81003; 82140; 83690; 83880; 84443; 84484; 85025; 85379; 85610; 87635; 93005; 99284; 99285

== ENCOUNTER 2022-10-24 20:32 | Inpatient (IN) | payer OTHER, MEDICAID, SELFPAY ==
--- NOTE | 2022-10-24 | ECG_ITS ---
Test Reason : N/V Blood Pressure : / mmHG Vent. Rate : 100 BPM Atrial Rate : 100 BPM P-R Int : 134 ms QRS Dur : 100 ms QT Int : 352 ms P-R-T Axes : 044 053 063 degrees QTc Int : 454 ms Normal sinus rhythm Possible Inferior infarct , age undetermined Abnormal ECG When compared with ECG of 29-MAY-2022 14:08, Nonspecific T wave abnormality now evident in Inferior leads Nonspecific T wave abnormality now evident in Anterolateral leads Referred By: Generic ED Physician Electronically Signed By:ISSA MADSEN
--- NOTE | ~2022-10-24 | CT_ITS ---
EXAMINATION: CT ANGIOGRAM OF THE CHEST WITH CONTRAST (CT PULMONARY ANGIOGRAM FOR PE) CT ABDOMEN/PELVIS WITH CONTRAST CLINICAL INFORMATION: Tachycardia, hypoxia, chest and abdominal pain. Abdominal distention, nausea and vomiting. COMPARISON: None TECHNIQUE: Prior to contrast administration, noncontrast localization images were obtained. Subsequently, multidetector volumetric imaging was performed from the thoracic inlet through the pubic symphysis following the administration of 85 mL Omnipaque 350 intravenous contrast. Postcontrast images of the chest were acquired during the pulmonary angiographic phase, while imaging through the abdomen and pelvis was performed during the portal venous phase. No contrast reaction reported Sagittal, coronal, and MIP oblique sagittal reformatted images were obtained on the CT workstation, uploaded to PACS, and reviewed. This CT examination was performed using dose optimization techniques as appropriate, variously including the following: *Automated exposure control *Adjustment of mA and/or kV according to patient size (this includes techniques or standardized protocols for targeted exams where dose is matched to indication/reason for exam; i.e. extremities or head) *Use of iterative reconstruction technique Total exam dose-length product 1757 mGy-cm FINDINGS: QUALITY OF STUDY/CONTRAST BOLUS: Satisfactory. PULMONARY ARTERIES: No central or segmental pulmonary emboli. THORACIC AORTA: No aneurysm or dissection. LUNG: Dependent subsegmental atelectasis present bilaterally, and within the right middle lobe. No acute pneumonic process. PLEURA: No pleural effusion or pneumothorax. MEDIASTINUM: Normal heart size. No pericardial effusion. No hilar or mediastinal lymphadenopathy. No evidence of septal bowing or right heart strain. Coronary calcifications present. CHEST WALL/AXILLA: No axillary or internal mammary lymphadenopathy. HEPATOBILIARY: Liver normal in size, contour and morphology. No suspicious lesions. No intra or extrahepatic biliary dilation. Cholelithiasis. PANCREAS: Unremarkable. SPLEEN: Unremarkable. ADRENAL GLANDS: Unremarkable. morphology demonstrating symmetric enhancement. No suspicious renal cysts or masses. No hydronephrosis or perinephric abnormality.. GASTROINTESTINAL TRACT: No bowel related abnormalities. PELVIC VISCERA: Unremarkable. LYMPH NODES: No lymphadenopathy. PERITONEUM/BODY WALL: No ascites. Omental fat-containing epigastric periumbilical and umbilical hernias without associated inflammation. Focal areas of subcutaneous fat stranding calcification within the ventral abdominal wall reflective fat necrosis related to prior trauma although previous injection (i.e. medication). VASCULAR STRUCTURES: Unremarkable. OSSEOUS STRUCTURES: No acute or suspicious osseous abnormalities. CT/CT abdomen pelvis w IV con IMPRESSION: * No pulmonary embolism. * No aortic aneurysm or dissection. * No acute pneumonic process. * Coronary calcifications. * No acute findings within the abdomen or pelvis. * Cholelithiasis. * Ventral abdominal hernias without herniation. VTE: negative.
[2022-10-24 20:48] VITALS: BP 136/58; PULSE 98; RESP 22; TEMP 36.5; O2SAT 96
[2022-10-24 20:49] LABS: Glucose, Whole Blood 143 mg/dL (60-115)
[2022-10-24 20:50] VITALS: BP 168/76; PULSE 118; O2SAT 97; BMI 39.0
--- NOTE | 2022-10-24 21:19 | PC.NURSE ---
Pt with room air oxygen saturation of 83%. Placed on 3L per nasal cannula. Primary RN and MAYUR to be made aware.
--- NOTE | 2022-10-24 21:45 | ED_ITS ---
HPI - Abdominal Pain General Chief Complaint: Abdominal Pain Stated Complaint: NAUSEOUS VOMITING Time Seen by Provider: 10/24/22 21:11 Source: patient and EMS Mode of arrival: EMS Limitations: no limitations History of Present Illness HPI narrative: Patient is a 52 old male who presents emergency department for evaluation of multiple complaints. Patient states that yesterday he was started on cephalexin for lower extremity cellulitis which has reportedly been recurrent. States he was last treated with antibiotics in May of 2022. He states that today he was feeling generally weak, ?so sick that he could not move? having nausea with vomiting, diffuse abdominal pain, abdominal distension, vague reports of chest pain. Denies fevers, chills, headache, neck pain, numbness or tingling of the extremities, diarrhea, constipation, bloody or dark stools, dysuria, urinary frequency/urgency/hesitancy. Denies personal history of DVT/PE. Related Data Home Medications Medication Instructions Recorded Confirmed amlodipine 10 mg tablet 10 mg PO DAILY 12/18/19 blood-glucose sensor #3 ea 12/18/19 blood-glucose transmitter #1 ea 12/18/19 carvedilol 3.125 mg tablet mg PO 12/18/19 collagenase clostridium histo. 250 topical 12/18/19 unit/gram topical ointment insulin glargine 100 unit/mL (3 35 unit subcut BID 12/18/19 mL) subcutaneous pen insulin lispro 100 unit/mL unit subcut 12/18/19 subcutaneous pen lisinopril 20 1 tab PO DAILY 12/18/19 mg-hydrochlorothiazide 12.5 mg tablet pen needle, diabetic 32 gauge x #50 ea 12/18/19 silver sulfadiazine 1 % topical applic topical 12/18/19 cream simvastatin 20 mg tablet 20 mg PO BEDTIME 12/18/19 sulfamethoxazole 800 1 tab PO BID 12/18/19 mg-trimethoprim 160 mg tablet Previous Rx's Medication Instructions Recorded doxycycline hyclate 100 mg capsule 100 mg PO BID 7 days #14 caps 06/01/21 hydroxyzine HCl 25 mg tablet 25 mg PO TID PRN itching #14 tabs 06/01/21 prednisone 20 mg tablet 40 mg PO DAILY 4 days #8 tabs 06/01/21 Allergies Allergy/AdvReac Type Severity Reaction Status Date / Time penicillin G Allergy Unknown Unknown Verified 06/01/21 18:27 PMFSH Social History Social History Advance Directives: No Advance Directives Information Provided: No Physical Exam ED Vital Signs: Vital Signs - 24 hr 10/24/22 20:48 10/24/22 22:14 10/24/22 22:00 Temperature 97.7 F Pulse Rate 98 109 H 110 H Respiratory Rate 22 H 20 20 Blood Pressure 136/58 L 169/78 H Pulse Oximetry 96 93 83 L Oxygen Delivery Method Room Air Nasal Cannula Room Air Oxygen Flow Rate 3 10/24/22 22:15 10/24/22 23:37 Temperature Pulse Rate 108 H 94 Respiratory Rate 20 20 Blood Pressure 164/75 H 158/73 H Pulse Oximetry 93 93 Oxygen Delivery Method Nasal Cannula Nasal Cannula Oxygen Flow Rate 3 4 BMI result Body Mass Index 39.0 Course Reevaluation(s) Reevaluation #1: CBC reveals leukocytosis with left shift. BMP overall unremarkable, glucose 115. Lactic acid 2.1. LFTs normal. Lipase normal. Troponin 5.9, EKG revealing a normal sinus rhythm with nonspecific T-wave abnormality, no acute ischemic findings. CT the chest abdomen pelvis revealing no pulmonary embolism, no acute cardiopulmonary process, no acute abdominal or pelvis process, presence of ventral abdominal hernias. COVID-19 testing pending Time: 23:51 Reevaluation #2: COVID-19 negative. Spoke with hospitalist, Dr. Batista accepts patient for admission to medicine service; acute hypoxic respiratory failure, sepsis, cellulitis Time: 00:45 Medical Decision Making Medical Decision Making MDM Narrative: Patient is a 52-year-old male with past medical history of hypertension, type 1 diabetes. 21:45 was my first contact with patient, generally he appears unwell and uncomfortable, pale, noted to be tachycardic, and he was on supplemental oxygen via nasal cannula which he does not wear at baseline. per nursing staff he was noted to be hypoxic at 83% on room air with a good pleath on the monitor, patient endorsing vague it reports of chest pain, but denying any shortness of breath. Abdomen is diffusely tender throughout, distended, notable reducible umbilical hernia. He has an insulin pump, and the glucose monitor present to the abdomen without signs of cellulitis. Currently meeting SIRS criteria; lactic acid and blood cultures to be obtained, Rocephin IV ordered. Differential Diagnosis Differential Diagnoses: The differential diagnosis associated with the presentation includes (Cellulitis, incarcerated hernia, diverticulitis, appendicitis, pancreatitis, cholecystitis, ACS, pulmonary embolism, pneumonia) Admission/Observation Consideration of admission/observation: Escalation of care including admission/observation considered (I considered admission for chest pain abdominal pain, see narrative above in addition to course narrative) Lab Data MDM Lab Attestation statement: I reviewed the patient's lab results. (See course narrative for further detail) 10/24/22 22:04 10/24/22 22:10 Labs: Lab Results 10/24/22 10/24/22 10/24/22 Range/Units 20:44 22:03 22:04 WBC 19.2 H (4.8-10.8) X10*3/uL RBC 5.24 (4.60-5.80) X10*6/uL Hgb 15.0 (14.0-18.0) g/dl Hct 45.6 (42.0-52.0) % MCV 87.0 (80.0-98.0) fL MCH 28.6 (27.0-33.0) pg MCHC 32.9 (31.0-36.0) g/dl RDW 13.0 (11.0-16.0) % Plt Count 237 (160-400) X10*3/uL MPV 10.4 (9.4-12.4) fL Immature Gran % (Auto) 0.6 H (0.0-0.4) % Neut % (Auto) 90.2 H (45-73) % Lymph % (Auto) 3.0 L (20-40) % [place] % (Auto) 5.5 (2-11) % Eos % (Auto) 0.2 (0-4) % Baso % (Auto) 0.5 (0-2) % Lymph # (Auto) 0.6 L (1.2-4.9) X10*3/uL [place] # (Auto) 1.1 (0.1-1.2) X10*3/uL Eos # (Auto) 0.0 (0.0-0.4) X10*3/uL Baso # (Auto) 0.1 (0.0-0.2) X10*3/uL Abs Immat Gran (auto) 0.12 H (0.00-0.03) X10*3/uL Absolute Neuts (auto) 17.3 H (2.0-8.3) x10*3/uL Absolute Nucleated RBC 0.000 (0.0-0.012) X10*3/uL Nucleated RBC % (auto) 0.0 (0.0-0.2) /100WBC Smear Tech's Comments VERIFIED Sodium (135-145) mmol/L Potassium (3.3-5.1) mmol/L Chloride (96-108) mmol/L Carbon Dioxide (22-29) mmol/L Anion Gap (12-20) BUN (9-16) mg/dL Creatinine (0.5-1.4) mg/dL Estim Creat Clear Calc Estimated GFR POC Glucose 143 H (60-115) mg/dL Random Glucose (60-115) mg/dL Lactic Acid (0.5-2.0) mmol/L Calcium (8.4-10.2) mg/dL Magnesium (1.6-2.6) mg/dL Total Bilirubin (0.0-1.0) mg/dL AST (5-37) U/L ALT (0-40) U/L Alkaline Phosphatase (39-117) U/L Troponin I High Sens 5.9 D (<3.5-35.0) ng/L Total Protein (6.5-8.0) g/dL Albumin (3.5-5.0) g/dL Lipase (8-78) U/L COVID-19 (ÁNGELA) (Negative) COVID-19 Clin Com 10/24/22 10/24/22 10/25/22 Range/Units 22:10 22:15 00:11 WBC (4.8-10.8) X10*3/uL RBC (4.60-5.80) X10*6/uL Hgb (14.0-18.0) g/dl Hct (42.0-52.0) % MCV (80.0-98.0) fL MCH (27.0-33.0) pg MCHC (31.0-36.0) g/dl RDW (11.0-16.0) % Plt Count (160-400) X10*3/uL MPV (9.4-12.4) fL Immature Gran % (Auto) (0.0-0.4) % Neut % (Auto) (45-73) % Lymph % (Auto) (20-40) % [place] % (Auto) (2-11) % Eos % (Auto) (0-4) % Baso % (Auto) (0-2) % Lymph # (Auto) (1.2-4.9) X10*3/uL [place] # (Auto) (0.1-1.2) X10*3/uL Eos # (Auto) (0.0-0.4) X10*3/uL Baso # (Auto) (0.0-0.2) X10*3/uL Abs Immat Gran (auto) (0.00-0.03) X10*3/uL Absolute Neuts (auto) (2.0-8.3) x10*3/uL Absolute Nucleated RBC (0.0-0.012) X10*3/uL Nucleated RBC % (auto) (0.0-0.2) /100WBC Smear Tech's Comments Sodium 142 (135-145) mmol/L Potassium 4.0 (3.3-5.1) mmol/L Chloride 106 (96-108) mmol/L Carbon Dioxide 19 L (22-29) mmol/L Anion Gap 21 H (12-20) BUN 17 H (9-16) mg/dL Creatinine 0.82 (0.5-1.4) mg/dL Estim Creat Clear Calc 156.3 Estimated GFR > 60 POC Glucose (60-115) mg/dL Random Glucose 115 (60-115) mg/dL Lactic Acid 2.1 H* (0.5-2.0) mmol/L Calcium 9.5 (8.4-10.2) mg/dL Magnesium 2.1 (1.6-2.6) mg/dL Total Bilirubin 0.7 (0.0-1.0) mg/dL AST 18 (5-37) U/L ALT 15 (0-40) U/L Alkaline Phosphatase 91 (39-117) U/L Troponin I High Sens (<3.5-35.0) ng/L Total Protein 7.8 (6.5-8.0) g/dL Albumin 4.2 (3.5-5.0) g/dL Lipase 13 (8-78) U/L COVID-19 (ÁNGELA) Negative (Negative) COVID-19 Clin Com See Note 10/25/22 Range/Units 00:25 WBC (4.8-10.8) X10*3/uL RBC (4.60-5.80) X10*6/uL Hgb (14.0-18.0) g/dl Hct (42.0-52.0) % MCV (80.0-98.0) fL MCH (27.0-33.0) pg MCHC (31.0-36.0) g/dl RDW (11.0-16.0) % Plt Count (160-400) X10*3/uL MPV (9.4-12.4) fL Immature Gran % (Auto) (0.0-0.4) % Neut % (Auto) (45-73) % Lymph % (Auto) (20-40) % [place] % (Auto) (2-11) % Eos % (Auto) (0-4) % Baso % (Auto) (0-2) % Lymph # (Auto) (1.2-4.9) X10*3/uL [place] # (Auto) (0.1-1.2) X10*3/uL Eos # (Auto) (0.0-0.4) X10*3/uL Baso # (Auto) (0.0-0.2) X10*3/uL Abs Immat Gran (auto) (0.00-0.03) X10*3/uL Absolute Neuts (auto) (2.0-8.3) x10*3/uL Absolute Nucleated RBC (0.0-0.012) X10*3/uL Nucleated RBC % (auto) (0.0-0.2) /100WBC Smear Tech's Comments Sodium (135-145) mmol/L Potassium (3.3-5.1) mmol/L Chloride (96-108) mmol/L Carbon Dioxide (22-29) mmol/L Anion Gap (12-20) BUN (9-16) mg/dL Creatinine (0.5-1.4) mg/dL Estim Creat Clear Calc Estimated GFR POC Glucose (60-115) mg/dL Random Glucose (60-115) mg/dL Lactic Acid 1.4 (0.5-2.0) mmol/L Calcium (8.4-10.2) mg/dL Magnesium (1.6-2.6) mg/dL Total Bilirubin (0.0-1.0) mg/dL AST (5-37) U/L ALT (0-40) U/L Alkaline Phosphatase (39-117) U/L Troponin I High Sens (<3.5-35.0) ng/L Total Protein (6.5-8.0) g/dL Albumin (3.5-5.0) g/dL Lipase (8-78) U/L COVID-19 (ÁNGELA) (Negative) COVID-19 Clin Com Independent Interpretation I performed an independent interpretation of an: EKG Interpretation: Rate: 100 Rhythm:? Normal sinus rhythm Normal P waves.? Normal DIANNE.?? Normal QRS complex.?? ST T wave :??No ST elevation, no ST depression qTC: 454 prior studies:? May 2022 The study has been interpreted contemporaneously by me. Radiology Impression Discussion of test interpretation with radiology: I have reviewed the radiologist's reading. Radiologist Impression: CT/CT angio chest PE protocol IMPRESSION: *? No pulmonary embolism. *? No aortic aneurysm or dissection. *? No acute pneumonic process. *? Coronary calcifications. *? No acute findings within the abdomen or pelvis. *? Cholelithiasis. *? Ventral abdominal hernias without herniation. Medications Administered Discontinued Medications Generic Name Dose Route Start Last Admin Trade Name Freq PRN Reason Stop Dose Admin Sodium Chloride 1,000 mls @ 999 mls/hr 10/24/22 21:45 10/24/22 23:34 Ns IV 10/24/22 22:45 Infused .Q1H1M ZAC Infusion Ceftriaxone Sodium 1 gm/ 50 mls @ 100 mls/hr 10/24/22 21:59 10/24/22 23:34 Sodium Chloride IV 10/24/22 22:28 Infused ONCE ONE Infusion Iohexol 85 ml 10/24/22 23:17 10/24/22 23:17 Iohexol 350 Mg/Ml 100 Ml Infus..Btl IV 10/24/22 23:18 85 ml ONCE ONE Administration Morphine Sulfate 4 mg 10/24/22 21:43 10/24/22 22:22 Morphine Sulfate 4 Mg/Ml Cartridge IVPUSH 10/24/22 21:44 4 mg ONCE ONE Administration Protocol Ondansetron HCl 4 mg 10/24/22 21:37 10/24/22 22:22 Ondansetron Hcl 4 Mg/2 Ml Vial IVPUSH 10/24/22 21:38 4 mg ONCE ONE Administration Discharge Plan Discharge Clinical Impression: Acute respiratory failure with hypoxia, Cellulitis of left lower extremity, Sepsis Patient Disposition: Admitted As Inpatient
[2022-10-24 22:00] VITALS: PULSE 110; RESP 20; O2SAT 83
[2022-10-24 22:14] VITALS: BP 169/78; PULSE 109; RESP 20; O2SAT 93
[2022-10-24 22:15] VITALS: BP 164/75; PULSE 108; RESP 20; O2SAT 93
[2022-10-24] MEDS: Morphine Sulfate 4 MG/ML CARTRIDGE IVPUSH (22:22)
[2022-10-24] MEDS: 0.9 % Sodium Chloride 1,000 ML 999 ML IV (22:22)
[2022-10-24] MEDS: ondansetron HCL 4 MG/2 ML VIAL IVPUSH (22:22)
[2022-10-24] MEDS: cefTRIAXone sodium 1 GM in 0.9 % Sodium Chloride 50 ML IV (22:22)
[2022-10-24 22:23] LABS: Basophils Absolute Auto 0.1 X10*3/uL (0.0-0.2); Basophils Percent Auto 0.5 % (0-2); Eosinophils Percent Auto 0.2 % (0-4); Hematocrit 45.6 % (42.0-52.0); Imm Gran Abs Auto 0.12 X10*3/uL (0.00-0.03); Imm Gran Pct Auto 0.6 % (0.0-0.4); Lymphocytes Absolute Auto 0.6 X10*3/uL (1.2-4.9); MANUAL DIFF FLAG SCAN; Mean Corpuscular HGB Conc 32.9 g/dl (31.0-36.0); Mean Corpuscular Hemoglobin 28.6 pg (27.0-33.0); Mean Platelet Volume 10.4 fL (9.4-12.4); Monocytes Absolute Auto 1.1 X10*3/uL (0.1-1.2); Monocytes Percent Auto 5.5 % (2-11); Neutrophils Absolute Auto 17.3 x10*3/uL (2.0-8.3); Neutrophils Percent Auto 90.2 % (45-73); Platelet Count 237 X10*3/uL (160-400); Red Blood Count 5.24 X10*6/uL (4.60-5.80); SCAN SMEAR FLAG 1; White Blood Count 19.2 X10*3/uL (4.8-10.8)
[2022-10-24 22:50] LABS: Alanine Aminotransferase 15 U/L (0-40); Albumin Level 4.2 g/dL (3.5-5.0); Alkaline Phosphatase 91 U/L (39-117); Anion Gap 21 (12-20); Aspartate Amino Transferase 18 U/L (5-37); Bilirubin Total 0.7 mg/dL (0.0-1.0); Blood Urea Nitrogen 17 mg/dL (9-16); Calcium 9.5 mg/dL (8.4-10.2); Carbon Dioxide 19 mmol/L (22-29); Chloride 106 mmol/L (96-108); Creatinine Clr Calc Pharmacy 156.3; Estimated Glomerular Filt Rate > 60; Glucose Random 115 mg/dL (60-115); Lipase 13 U/L (8-78); Magnesium 2.1 mg/dL (1.6-2.6); Sodium 142 mmol/L (135-145); Total Protein 7.8 g/dL (6.5-8.0)
[2022-10-24 22:53] LABS: SLIDE REVIEW VERIFIED
[2022-10-24 22:54] LABS: Lactic Acid 2.1 mmol/L (0.5-2.0)
[2022-10-24 22:57] LABS: Troponin-I High Sensitivity 5.9 ng/L (<3.5-35.0)
[2022-10-24] MEDS: iohexoL 350 MG/ML 100 ML INFUS..BTL 85 ML IV (23:17)
[2022-10-24 23:37] VITALS: BP 158/73; PULSE 94; RESP 20; O2SAT 93
[2022-10-25 00:19] LABS: Reflex Lactate? Lactic Acid Added
[2022-10-25 00:36] LABS: COVID-19 Test Negative (Negative); IDNOW Serial# 6674DD1D
[2022-10-25 00:41] LABS: Lactic Acid 1.4 mmol/L (0.5-2.0)
[2022-10-25 01:47] LABS: VBG Base Excess 0.5 mmol/L; VBG HCO3 25 mmol/L (22-26); VBG pCO2 40 mmHg; VBG pH 7.39 (7.32-7.43); VBG pO2 59 mmHg
[2022-10-25 01:56] LABS: Venous Blood Gas Refer to POC result
[2022-10-25 02:02] LABS: B Type Natriuretic Peptide 21 pg/mL (<100)
--- NOTE | 2022-10-25 02:18 | PM.IMHP ---
History of Present Illness Date of Service: 10/25/22 Chief Complaint: Leg infection This is a 52-year-old male with pertinent history of essential hypertension, insulin-dependent type 1 diabetes mellitus, mixed hyperlipidemia, venous stasis of lower extremities who presents to the emergency department for evaluation of redness, warmth and purulent drainage of lower extremities. Patient states he does have a history of recurrent bilateral lower extremity cellulitis. He noticed redness and warmth about 3 days prior to presentation. He called his PCP and was initiated on Keflex. The redness, warmth progressed with left extremity worse than the right. He also noticed purulent drainage from the right lower extremity. Also has been having chills, nausea, generalized malaise. He denies chest discomfort, palpitations, shortness of breath, changes in urinary or bowel habits. In the emergency department, patient was found to be septic and hypoxemic. Review of Systems Constitutional: Constitutional: Reports fatigue, Reports lethargy and Reports malaise Cardiovascular: Cardiovascular: Reports no additional cardiovascular complaints Respiratory: Respiratory: Reports no additional respiratory complaints Gastrointestinal: Gastrointestinal: Reports no additional gastrointestinal complaints Genitourinary: Genitourinary: Reports no additional male genitourinary complaints Endocrine: Endocrine: Reports fatigue PMFSH Medical History Essential hypertension Mixed hyperlipidemia Type 1 diabetes mellitus Varicose veins of left lower extremity with inflammation Varicose veins of right lower extremity with inflammation Pertinent family history: No family history of early CAD Social History Advance Directives: No Advance Directives Information Provided: No Meds Allergies Allergy/AdvReac Type Severity Reaction Status Date / Time penicillin G Allergy Unknown Unknown Verified 06/01/21 18:27 Active Medications: Current Medications Pharmacy Consult (Consult Rx Perform Med Rec) 1 each MISCELLANE ONCE PRN PRN Reason: Consult order Home Medications Medication Instructions Recorded Confirmed Last Taken Type amlodipine 10 mg tablet 10 mg PO DAILY 12/18/19 Unknown History blood-glucose sensor #3 ea 12/18/19 Unknown History blood-glucose transmitter #1 ea 12/18/19 Unknown History carvedilol 3.125 mg tablet mg PO 12/18/19 Unknown History collagenase clostridium histo. 250 topical 12/18/19 Unknown History unit/gram topical ointment insulin glargine 100 unit/mL (3 35 unit subcut BID 12/18/19 Unknown History mL) subcutaneous pen insulin lispro 100 unit/mL unit subcut 12/18/19 Unknown History subcutaneous pen lisinopril 20 1 tab PO DAILY 12/18/19 Unknown History mg-hydrochlorothiazide 12.5 mg tablet pen needle, diabetic 32 gauge x #50 ea 12/18/19 Unknown History silver sulfadiazine 1 % topical applic topical 12/18/19 Unknown History cream simvastatin 20 mg tablet 20 mg PO BEDTIME 12/18/19 Unknown History sulfamethoxazole 800 1 tab PO BID 12/18/19 Unknown History mg-trimethoprim 160 mg tablet Physical Exam Vital Signs and Narrative: Vital Signs: Last Vital Signs Temp 97.7 F 10/24/22 20:48 Pulse 94 10/24/22 23:37 Resp 20 10/24/22 23:37 BP 158/73 H 10/24/22 23:37 Pulse Ox 93 10/24/22 23:37 O2 Del Method Nasal Cannula 10/24/22 23:37 O2 Flow Rate 4 10/24/22 23:37 BMI result Body Mass Index 39.0 Middle-aged male lying in bed in mild distress on supplemental oxygen Neck supple, no JVD Regular rate and rhythm, S1-S2 heard Regular breath sounds bilaterally, no wheezing or crackles appreciated Abdomen soft nontender, no guarding, no rigidity Patient is awake, alert and oriented to self, place, time and person ; no focal motor deficit Extremity: Lower extremity with erythema, warmth ; right lower extremity with serosanguineous drainage. Venous stasis changes seen on both lower legs Results Labs 10/24/22 22:04 10/24/22 22:10 Labs: Laboratory Results - last 24 hr 10/24/22 10/24/22 10/24/22 20:44 22:04 22:10 MCV 87.0 MCH 28.6 MCHC 32.9 RDW 13.0 Plt Count 237 MPV 10.4 Immature Gran % (Auto) 0.6 H Neut % (Auto) 90.2 H Lymph % (Auto) 3.0 L [place] % (Auto) 5.5 Eos % (Auto) 0.2 Baso % (Auto) 0.5 Lymph # (Auto) 0.6 L [place] # (Auto) 1.1 Eos # (Auto) 0.0 Baso # (Auto) 0.1 Abs Immat Gran (auto) 0.12 H Absolute Neuts (auto) 17.3 H Absolute Nucleated RBC 0.000 Nucleated RBC % (auto) 0.0 Smear Tech's Comments VERIFIED VBG pH VBG pCO2 VBG pO2 VBG HCO3 VBG O2 Saturation VBG Base Excess Anion Gap 21 H Estim Creat Clear Calc 156.3 Estimated GFR > 60 POC Glucose 143 H Random Glucose 115 Lactic Acid Calcium 9.5 Magnesium 2.1 Total Bilirubin 0.7 AST 18 ALT 15 Alkaline Phosphatase 91 B-Natriuretic Peptide Total Protein 7.8 Albumin 4.2 Lipase 13 COVID-19 (ÁNGELA) COVID-19 Clin Com 10/24/22 10/25/22 10/25/22 22:15 00:11 00:25 MCV MCH MCHC RDW Plt Count MPV Immature Gran % (Auto) Neut % (Auto) Lymph % (Auto) [place] % (Auto) Eos % (Auto) Baso % (Auto) Lymph # (Auto) [place] # (Auto) Eos # (Auto) Baso # (Auto) Abs Immat Gran (auto) Absolute Neuts (auto) Absolute Nucleated RBC Nucleated RBC % (auto) Smear Tech's Comments VBG pH VBG pCO2 VBG pO2 VBG HCO3 VBG O2 Saturation VBG Base Excess Anion Gap Estim Creat Clear Calc Estimated GFR POC Glucose Random Glucose Lactic Acid 2.1 H* 1.4 Calcium Magnesium Total Bilirubin AST ALT Alkaline Phosphatase B-Natriuretic Peptide Total Protein Albumin Lipase COVID-19 (ÁNGELA) Negative COVID-19 Clin Com See Note 10/25/22 10/25/22 01:37 01:39 MCV MCH MCHC RDW Plt Count MPV Immature Gran % (Auto) Neut % (Auto) Lymph % (Auto) [place] % (Auto) Eos % (Auto) Baso % (Auto) Lymph # (Auto) [place] # (Auto) Eos # (Auto) Baso # (Auto) Abs Immat Gran (auto) Absolute Neuts (auto) Absolute Nucleated RBC Nucleated RBC % (auto) Smear Tech's Comments VBG pH 7.39 VBG pCO2 40 VBG pO2 59 VBG HCO3 25 VBG O2 Saturation 88.0 VBG Base Excess 0.5 Anion Gap Estim Creat Clear Calc Estimated GFR POC Glucose Random Glucose Lactic Acid Calcium Magnesium Total Bilirubin AST ALT Alkaline Phosphatase B-Natriuretic Peptide 21 Total Protein Albumin Lipase COVID-19 (ÁNGELA) COVID-19 Clin Com Imaging Radiologist's Impressions: Impressions Chest CTA 10/24/22 23:34 IMPRESSION: * No pulmonary embolism. * No aortic aneurysm or dissection. * No acute pneumonic process. * Coronary calcifications. * No acute findings within the abdomen or pelvis. * Cholelithiasis. * Ventral abdominal hernias without herniation. VTE: negative. Abdomen/Pelvis CT 10/24/22 23:36 IMPRESSION: * No pulmonary embolism. * No aortic aneurysm or dissection. * No acute pneumonic process. * Coronary calcifications. * No acute findings within the abdomen or pelvis. * Cholelithiasis. * Ventral abdominal hernias without herniation. VTE: negative. Assessment and Plan (1) Cellulitis of left lower extremity: Status: Acute (2) Acute respiratory failure with hypoxia: Status: Acute Plan This is a 52-year-old male with pertinent history of essential hypertension, insulin-dependent type 1 diabetes mellitus, mixed hyperlipidemia, venous stasis of lower extremities who presents to the emergency department for evaluation of redness, warmth and purulent drainage of lower extremities. #. Sepsis due to lower extremity purulent cellulitis. Resuscitated with IV crystalloids. Initiating empiric IV antibiotics. Monitor for improvement. Blood culture and lactic acid obtained #. Acute hypoxemic respiratory failure in the setting of sepsis. Monitor oxygen saturation and wean as tolerated. #. Insulin-dependent type 1 diabetes mellitus. Continue home insulin pump. Initiating Accu-Cheks with sliding scale insulin #. Essential hypertension. Continue home antihypertensives #. Mixed hyperlipidemia. On statin Med rec pending DVT prophylaxis: Lovenox Full code Admit as inpatient and will require two night minimum hospital stay for IV antibiotics and supplemental oxygen Time Spent With Patient Time: Total time managing care of this patient today ____ minutes. Quality Stroke Does the patient have a stroke diagnosis?: No VTE Prior VTE?: No VTE Risk Level:: Medical - moderate - high VTE Device Contraindication: Treatment Not Indicated VTE Drug Contraindication: N/A - Med Ordered
[2022-10-25 03:00] VITALS: BP 146/62; PULSE 84; RESP 18; O2SAT 93
[2022-10-25] MEDS: vancomycin/NS 2,000 MG/500 ML PLAST..BAG 250 MG IV (03:05)
[2022-10-25 04:19] LABS: Appearance Urine Clear; Color Urine Yellow; Glucose Urine UA Negative (Negative); Leukocyte Esterase Urine Negative (Negative); Nitrite Urine Negative (Negative); Specific Gravity - Urine >= 1.030 (1.005-1.025); Urine Blood Negative (Negative); Urine Ketones Negative (Negative); Urine Protein Trace mg/dL (Neg-Trace)
[2022-10-25 05:38] LABS: MANUAL DIFF FLAG NO
[2022-10-25 05:43] LABS: Basophils Absolute Auto 0.1 X10*3/uL (0.0-0.2); Basophils Percent Auto 0.4 % (0-2); Eosinophils Percent Auto 0.1 % (0-4); Hemoglobin 13.2 g/dl (14.0-18.0); Imm Gran Abs Auto 0.12 X10*3/uL (0.00-0.03); Imm Gran Pct Auto 0.7 % (0.0-0.4); Lymphocytes Absolute Auto 0.9 X10*3/uL (1.2-4.9); Lymphocytes Percent Auto 5.1 % (20-40); Mean Corpuscular Hemoglobin 28.2 pg (27.0-33.0); Mean Corpuscular Volume 85.5 fL (80.0-98.0); Mean Platelet Volume 9.7 fL (9.4-12.4); Monocytes Absolute Auto 1.5 X10*3/uL (0.1-1.2); Monocytes Percent Auto 8.7 % (2-11); Neutrophils Absolute Auto 14.5 x10*3/uL (2.0-8.3); Platelet Count 246 X10*3/uL (160-400); Red Blood Count 4.68 X10*6/uL (4.60-5.80); Red Cell Distribution Width 13.2 % (11.0-16.0)
[2022-10-25] MEDS: Enoxaparin Sodium 40 MG/0.4 ML SYRINGE SUBCUT (05:46)
[2022-10-25 06:11] LABS: Anion Gap 15 (12-20); Blood Urea Nitrogen 14 mg/dL (9-16); Calcium 8.7 mg/dL (8.4-10.2); Carbon Dioxide 23 mmol/L (22-29); Chloride 106 mmol/L (96-108); Creatinine Clr Calc Pharmacy 156.3; Estimated Glomerular Filt Rate > 60; Glucose Random 136 mg/dL (60-115); Sodium 140 mmol/L (135-145)
[2022-10-25 06:18] VITALS: BP 160/69; PULSE 89; RESP 17; TEMP 36.8; O2SAT 95
[2022-10-25 06:50] VITALS: BP 168/76; PULSE 86; RESP 20; O2SAT 94
--- NOTE | 2022-10-25 06:51 | PHA.PROG ---
Admission Date/Time: October 25, 2022 02:17 Indication: skin Weight in k.6 kg Adjusted body weight in K.34 Etta body weight in K.5 Obesity Dosing Indication % IBW: Obese Serum Creatinine - Last 168 Hours 10/24/22 10/25/22 22:10 05:25 Creatinine 0.82 0.82 Estimated CrCl and GFR - Last 168 Hours 10/24/22 10/25/22 22:10 05:25 Estim Creat Clear Calc 156.3 156.3 Estimated GFR > 60 > 60 Vancomycin Loading Dose: 2000mg x 1 Current Vancomycin Dosing Regimen: 1250 mg Q12H Vancomycin Monitoring using AUC goal of 400 - 600 range with trough as surrogate marker: 455 Date and Time for next Vancomycin Level to be drawn: 10/26 @1300 Pharmacist Comments on Vancomycin Plan: Vancomycin dosing will take advantage of [employer] as a clinical decision support tool that uses Bayesian modeling to calculate individual patient's pharmacokinetic parameters and forecast the patient's drug concentration time course with the target goal AUC 24 range of 400 - 600 mg/L/hr.
[2022-10-25 06:58] LABS: Glucose, Whole Blood 143 mg/dL (60-115)
--- NOTE | 2022-10-25 08:49 | PHA.MEDREC ---
Pharmacy Consult ? Medication Reconciliation Pharmacy has completed the medication reconciliation. Pt was able to confirm names of medications but wasn't sure about dosing. Used claim history to confirm dosing.
[2022-10-25] MEDS: carvediloL 3.125 MG TABLET 1.5625 MG PO ×2 (10:34→20:43)
--- NOTE | 2022-10-25 10:44 | PC.NURSE ---
medication administered per provider order.
--- NOTE | 2022-10-25 11:00 | PC.NURSE ---
report given to RN on medsurg unit.
[2022-10-25 11:46] LABS: Glucose, Whole Blood 126 mg/dL (60-115)
[2022-10-25 12:07] VITALS: BMI 41.9
--- NOTE | 2022-10-25 14:02 | PM.EVENT ---
Event Note Date of Service: 10/25/22 Event Note: seen and examined this morning follow up for b/l lower extremity cellulitis denies fever/chills at this time continue vanco, will add ceftriaxone to continue home insulin pump per patient request to due better insulin control - someone will bring additional cartridges this evening. if unable to - switch to lantus and sliding scale - on his med rec remainder of plan per admission H&P of note, there was documentation of 83% o2 sat, pt underwent cta which was negative. no respiratory symptoms and currently on room air unclear if this was an error. but does not appear to have any active respiratory issue at this time. Time Spent With Patient Time: Total time managing care of this patient today ____ minutes.
[2022-10-25] MEDS: vancomycin HCL 1,250 MG in 0.9 % Sodium Chloride 250 ML 166.67 MG IV (14:46)
[2022-10-25 16:00] VITALS: BP 145/65; PULSE 78; RESP 20; TEMP 36.6; O2SAT 99
[2022-10-25 16:08] LABS: Glucose, Whole Blood 127 mg/dL (60-115)
[2022-10-25] MEDS: Acetaminophen 325 MG TABLET 650 MG PO (16:25)
[2022-10-25] MEDS: 0.9 % Sodium Chloride Flush 3 ML SYRINGE IVFLUSH ×2 (16:29→20:44)
[2022-10-25] MEDS: ondansetron HCL 4 MG/2 ML VIAL IVPUSH (17:28)
[2022-10-25 19:29] VITALS: BP 127/59; PULSE 93; RESP 18; TEMP 36.9; O2SAT 98
[2022-10-25 20:15] LABS: Glucose, Whole Blood 154 mg/dL (60-115)
[2022-10-25] MEDS: cefTRIAXone sodium 1 GM in 0.9 % Sodium Chloride 50 ML IV (20:43)
[2022-10-25] MEDS: amLODIPine Besylate 10 MG TABLET PO (20:44)
[2022-10-25] MEDS: Atorvastatin Calcium 10 MG TABLET PO (20:44)
[2022-10-26] MEDS: Enoxaparin Sodium 40 MG/0.4 ML SYRINGE SUBCUT (03:04)
[2022-10-26] MEDS: vancomycin HCL 1,250 MG in 0.9 % Sodium Chloride 250 ML 166.66 MG IV (03:04)
[2022-10-26] MEDS: Acetaminophen 325 MG TABLET 650 MG PO (03:13)
[2022-10-26 03:58] VITALS: BP 133/61; PULSE 91; RESP 19; TEMP 37.3; O2SAT 95
[2022-10-26 05:41] LABS: Hemoglobin 13.2 g/dl (14.0-18.0); Mean Corpuscular Hemoglobin 28.4 pg (27.0-33.0); Mean Platelet Volume 9.6 fL (9.4-12.4); Platelet Count 231 X10*3/uL (160-400); Red Blood Count 4.65 X10*6/uL (4.60-5.80); Red Cell Distribution Width 13.2 % (11.0-16.0); White Blood Count 11.2 X10*3/uL (4.8-10.8)
[2022-10-26 05:56] LABS: Creatinine Clr Calc Pharmacy 154.8; Estimated Glomerular Filt Rate > 60
[2022-10-26 07:51] VITALS: BP 121/76; PULSE 87; RESP 18; TEMP 37.2; O2SAT 94
[2022-10-26 07:56] LABS: Glucose, Whole Blood 119 mg/dL (60-115)
[2022-10-26] MEDS: carvediloL 3.125 MG TABLET 1.5625 MG PO ×2 (08:57→20:41)
[2022-10-26] MEDS: 0.9 % Sodium Chloride Flush 3 ML SYRINGE IVFLUSH ×2 (08:58→20:45)
--- NOTE | 2022-10-26 11:05 | HO.PM.IMPN ---
Subjective Subjective Date of Service: 10/26/22 Review of Systems Follow-up bilateral lower extremity cellulitis No pain, reports some itchiness to bilateral lower extremities Physical Exam Vital Signs: Vital Signs: Last Vital Signs Temp 99.0 F 10/26/22 07:51 Pulse 87 10/26/22 07:51 Resp 18 10/26/22 07:51 BP 121/76 10/26/22 07:51 Pulse Ox 94 10/26/22 07:51 O2 Del Method Room Air 10/26/22 07:51 O2 Flow Rate 4 10/25/22 03:00 BMI result Body Mass Index 41.9 Appearing in no acute distress lung sounds are clear to auscultation heart regular rate rhythm, clear S1, S2 positive bowel sounds, abdomen is soft, nontender neuro patient is alert x3, no focal deficits Bilateral lower extremity skin changes with erythema noted Objective Data Active Medications Acetaminophen (Acetaminophen 325 Mg Tablet) 650 mg PO Q6H PRN PRN Reason: Pain, Mild (Pain Scale 1-3) Last Admin: 10/26/22 03:13 Dose: 650 mg Documented By: MYESHA Amlodipine Besylate (Amlodipine Besylate 10 Mg Tablet) 10 mg PO BEDTIME ZAC; Protocol Last Admin: 10/25/22 20:44 Dose: 10 mg Documented By: MYESHA Atorvastatin Calcium (Atorvastatin Calcium 10 Mg Tablet) 10 mg PO BEDTIME ZAC Last Admin: 10/25/22 20:44 Dose: 10 mg Documented By: MYESHA Carvedilol (Carvedilol 3.125 Mg Tablet) 1.5625 mg PO BID ZAC; Protocol Last Admin: 10/26/22 08:57 Dose: 1.5625 mg Documented By: OSMIN Dextrose (Dextrose 50 % 25 Gm/50 Ml Syringe) 25 gm IVPUSH Q15M PRN; Protocol PRN Reason: per Hypoglycemia Standing Ord. Enoxaparin Sodium (Enoxaparin Sodium 40 Mg/0.4 Ml Syringe) 40 mg SUBCUT Q24H ZAC Last Admin: 10/26/22 03:04 Dose: 40 mg Documented By: MYESHA Glucose (Glucose Gel 15 Gm Gel..Gram.) 15 gm PO Q15M PRN; Protocol PRN Reason: per Hypoglycemia Standing Ord. Vancomycin HCl 1,250 mg/ (Sodium Chloride) 250 mls @ 166.667 mls/hr IV Q12H [facility] Last Infusion: 10/26/22 04:41 Dose: 0 mls/hr Documented By: MYESHA Ceftriaxone Sodium 1 gm/ (Sodium Chloride) 50 mls @ 100 mls/hr IV Q24H [facility] Last Infusion: 10/25/22 21:13 Dose: 0 mls/hr Documented By: MYESHA Insulin Human Lispro (Insulin Lispro 100 Unit/Ml 3 Ml Vial) 0 unit SUBCUT [facility]; Protocol Last Admin: 10/26/22 08:55 Dose: Not Given Documented By: OSMIN Non-Admin Reason: No Insulin Coverage Insulin Pump (Subcutaneous Insulin Pump) 1 each SUBCUT QIDACHS [facility]; Protocol Last Admin: 10/26/22 08:57 Dose: Not Given Documented By: OSMIN Non-Admin Reason: pt has implanted pump Melatonin (Melatonin 3 Mg Tablet) 6 mg PO BEDTIME PRN PRN Reason: Insomnia Ondansetron HCl (Ondansetron Hcl 4 Mg/2 Ml Vial) 4 mg IVPUSH Q8H PRN PRN Reason: Nausea and Vomiting Last Admin: 10/25/22 17:28 Dose: 4 mg Documented By: FELIX Pharmacy Consult (Consult Rx Vancomycin Dosing) 1 each MISCELLANE DAILY PRN PRN Reason: Consult order Pharmacy Consult (Consult Rx Perform Med Rec) 1 each MISCELLANE ONCE PRN PRN Reason: Consult order Sodium Chloride (0.9 % Sodium Chloride Flush 3 Ml Syringe) 3 ml IVFLUSH QSHIFT [facility] Last Admin: 10/26/22 08:58 Dose: 3 ml Documented By: OSMIN Labs 10/26/22 05:32 10/26/22 05:32 Labs: Laboratory Results - last 24 hr 10/25/22 10/25/22 10/25/22 11:31 15:53 20:11 MCV MCH MCHC RDW Plt Count MPV Absolute Nucleated RBC Nucleated RBC % (auto) Estim Creat Clear Calc Estimated GFR POC Glucose 126 H 127 H 154 H 10/26/22 10/26/22 10/26/22 05:32 05:32 07:48 MCV 86.0 MCH 28.4 MCHC 33.0 RDW 13.2 Plt Count 231 MPV 9.6 Absolute Nucleated RBC 0.000 Nucleated RBC % (auto) 0.0 Estim Creat Clear Calc 154.8 Estimated GFR > 60 POC Glucose 119 H Microbiology Microbiology Results: Microbiology 10/24/22 22:03 Blood Culture - Preliminary Blood - Venous No growth after 24 hours. 10/24/22 20:55 Blood Culture - Preliminary Blood - Venous No growth after 24 hours. Assessment and Plan (1) Cellulitis of left lower extremity: Status: Acute Plan This is a 52-year-old male with pertinent history of essential hypertension, insulin-dependent type 1 diabetes mellitus, mixed hyperlipidemia, venous stasis of lower extremities who presents to the emergency department for evaluation of redness, warmth and purulent drainage of lower extremities. Sepsis due to lower extremity purulent cellulitis.? Sepsis resolved continue IV vancomycin Monitor for improvement.? Blood culture pending emollient cream for lower extremity dryness Insulin-dependent type 1 diabetes mellitus.? Patient brought pump cartridges but no insulin, discussed with pharmacy, pt can bring insulin for pump alternative is sliding scale ACHS, which has been ordered Essential hypertension.? Continue amlodipine Mixed hyperlipidemia.? On statin DVT prophylaxis:? Lovenox Attending Dr. Diaz Continue hospitalization for treatment bilateral lower extremity cellulitis requiring IV antibiotics Time Spent With Patient Time: Total time managing care of this patient today ____ minutes. Quality Stroke Does the patient have a stroke diagnosis?: No VTE Prior VTE?: No VTE Risk Level:: Medical - moderate - high VTE Device Contraindication: Treatment Not Indicated VTE Drug Contraindication: N/A - Med Ordered
[2022-10-26 11:51] LABS: Glucose, Whole Blood 188 mg/dL (60-115)
[2022-10-26] MEDS: Insulin Lispro 100 UNIT/ML 3 ML VIAL SUBCUT (12:32)
[2022-10-26 13:24] LABS: Vancomycin Random 10.2 mcg/mL (15-20)
[2022-10-26] MEDS: vancomycin HCL 1,500 MG in 0.9 % Sodium Chloride 500 ML 333.33 MG IV (14:34)
[2022-10-26 16:00] VITALS: BP 148/60; PULSE 86; RESP 17; TEMP 36.3; O2SAT 92
--- NOTE | 2022-10-26 16:08 | MHC.CM.PN ---
PT REPORTS HE LIVES ALONE AND IS INDEPENDENT WITH CARE PT HAS NO SERVICES AND WORKS PT HAS AN INSULIN PUMP AND NO OTHER DME PT REPORTS HE HAS A HCP ALREADY, COPY REQUESTED PCP: CHELA NASH DCP: HOME NO SERVICES VIA PRIVATE TRANSPORT
[2022-10-26 16:22] LABS: Glucose, Whole Blood 188 mg/dL (60-115)
[2022-10-26] MEDS: polyethylene glycoL 3350 17 GM POWD.PACK PO (18:08)
[2022-10-26 20:00] VITALS: BP 150/70; PULSE 79; RESP 16; TEMP 36.9; O2SAT 93
[2022-10-26] MEDS: amLODIPine Besylate 10 MG TABLET PO (20:42)
[2022-10-26] MEDS: Atorvastatin Calcium 10 MG TABLET PO (20:42)
[2022-10-26 20:58] LABS: Glucose, Whole Blood 162 mg/dL (60-115)
[2022-10-26] MEDS: cefTRIAXone sodium 1 GM in 0.9 % Sodium Chloride 50 ML IV (22:17)
[2022-10-27] MEDS: Enoxaparin Sodium 40 MG/0.4 ML SYRINGE SUBCUT (02:23)
[2022-10-27] MEDS: vancomycin HCL 1,500 MG in 0.9 % Sodium Chloride 500 ML 333.33 MG IV (02:25)
[2022-10-27 04:00] VITALS: BP 161/77; PULSE 81; RESP 20; TEMP 37.1; O2SAT 93
[2022-10-27 05:59] LABS: Creatinine Clr Calc Pharmacy 177.5; Estimated Glomerular Filt Rate > 60
[2022-10-27 07:34] VITALS: BP 153/69; PULSE 82; RESP 18; TEMP 36.6; O2SAT 94
[2022-10-27 07:38] LABS: Glucose, Whole Blood 148 mg/dL (60-115)
[2022-10-27] MEDS: polyethylene glycoL 3350 17 GM POWD.PACK PO (08:17)
[2022-10-27] MEDS: carvediloL 3.125 MG TABLET 1.5625 MG PO (08:17)
[2022-10-27] MEDS: 0.9 % Sodium Chloride Flush 3 ML SYRINGE IVFLUSH (08:18)
--- NOTE | 2022-10-27 10:03 | P.DS_ITS ---
DS: Providers Provider Date of Service: 10/27/22 Date of admission: 10/25/22 02:17 Primary care physician: Louisa Jason DO DS: Diagnosis Discharge Diagnosis (1) Cellulitis of left lower extremity: Status: Acute DS: Summary Hospital Course Hospital Course: History and physical as per admitting provider. This is a 52-year-old male with pertinent history of essential hypertension, insulin-dependent type 1 diabetes mellitus, mixed hyperlipidemia, venous stasis of lower extremities who presents to the emergency department for evaluation of redness, warmth and purulent drainage of lower extremities.? Patient states he does have a history of recurrent bilateral lower extremity cellulitis.? He noticed redness and warmth about 3 days prior to presentation.? He called his PCP and was initiated on Keflex.? The redness, warmth progressed with left extremity worse than the right.? He also noticed purulent drainage from the right lower extremity.? Also has been having chills, nausea, generalized malaise.? He denies chest discomfort, palpitations, shortness of breath, changes in urinary or bowel habits. mIn the emergency department, patient was found to be septic and hypoxemic. 52-year-old man treated for lower extremity cellulitis with sepsis. Blood cult ures have remained negative. Patient was treated with IV vancomycin with improvement to erythema in his lower extremities. He did have some complaints of pruritus to his lower extremities, was started on an emollient cream which he can continue at home. Total 10 days of Augmentin and doxycycline. Time Spent with Patient Time attestation: Total time managing care of this patient today ____ minutes. Discharge coordination time: Greater than 30 minutes Quality: Safe Use of Opioids Does Pt have an Active Cancer Diagnosis on the Problem List?: No Quality: Stroke Does the patient have a stroke diagnosis?: No Physical Exam Vital Signs: Vital Signs: Last Vital Signs Temp 98 F 10/27/22 07:34 Pulse 82 10/27/22 07:34 Resp 18 10/27/22 07:34 BP 153/69 H 10/27/22 07:34 Pulse Ox 94 10/27/22 07:34 O2 Del Method Room Air 10/27/22 07:34 O2 Flow Rate 4 10/25/22 03:00 BMI result Body Mass Index 41.9 Appearing in no acute distress head is normocephalic atraumatic eyes pupils are PERRLA sclera is anicteric mouth throat mucous membranes are intact and moist neck is supple no lymphadenopathy, no JVD noted lung sounds are clear to auscultation heart regular rate rhythm, clear S1, S2 positive bowel sounds, abdomen is soft, nontender neuro patient is alert x3, no focal deficits DS: Data Data Completed and Pending Labs on day of discharge: Laboratory Results - last 24 hr 10/26/22 10/26/22 10/26/22 11:43 12:53 16:19 Creatinine Estim Creat Clear Calc Estimated GFR POC Glucose 188 H 188 H Random Vancomycin 10.2 L 10/26/22 10/27/22 10/27/22 20:55 05:20 07:32 Creatinine 0.75 Estim Creat Clear Calc 177.5 Estimated GFR > 60 POC Glucose 162 H 148 H Random Vancomycin Preliminary micro results at discharge 10/24/22 22:03 Blood Culture - Preliminary Blood - Venous No growth after 48 hours. 10/24/22 20:55 Blood Culture - Preliminary Blood - Venous No growth after 48 hours. Discharge Plan Discharge Anticipated Discharge Date/Time: 10/27/22 08:43 Patient Disposition: Home, Self-Care Discharge Diagnosis: Cellulitis Referrals: Louisa Jason DO [Primary Care Provider] - 1 Week Discharge Medications: New doxycycline hyclate 100 mg tablet 100 mg PO BID Qty: 20 0RF amoxicillin-pot clavulanate 875-125 mg tablet 1 tab PO Q12H Qty: 20 0RF Continued insulin glargine 100 unit/mL (3 mL) insulin pen 35 unit subcut BID PRN (Reason: PUMP FAILURE) Rx Instructions: ONLY FOR USE WHEN PUMP FAILS lisinopril-hydrochlorothiazide 20-12.5 mg tablet 1 tab PO DAILY amlodipine 10 mg tablet 10 mg PO BEDTIME simvastatin 20 mg tablet 20 mg PO BEDTIME carvedilol 3.125 mg tablet 1.5625 mg PO BID insulin lispro 100 unit/mL insulin pen 1 sliding scale dose subcut DAILY Rx Instructions: PT USES INSULIN PUMP WITH CONTINUOUS BASAL AND BOLUSES WITH MEALS Discontinued cephalexin 500 mg capsule 500 mg PO QID Discharge Orders: Discharge Order (Routine); Ordered 10/27/22 Ordered By: Opal Shah Diet: Advance to usual diet Activity on Discharge: As tolerated Stand Alone Forms: Patient Portal Discharge page, Work/School Release Care Plan Goals: Use emollient cream such as eucerin for lower extremity itchiness Health Concerns: Cellulitis Plan of Treatment: Follow-up with primary care provider as needed Take all medications as prescribed Assessment: See discharge summary
--- NOTE | 2022-10-27 10:04 | MHC.CM.PN ---
pt dcd home no servcies
[2022-10-27 11:04] LABS: Glucose, Whole Blood 244 mg/dL (60-115)
== END 2022-10-27 12:04 | disposition home or self-care (01) | DRG 871 ==
LOC: HO.ED 10-25 00:44 → HO.EDOVER 10-25 04:06 → HO.S3 10-25 10:33
PROVIDERS: Nurse Practitioner Family; Physician Assistant Medical; Admitting Provider Student in an Organized Health Care Education/Training Program; Emergency Provider Internal Medicine; PCP Internal Medicine; Visit Provider Nurse Practitioner Acute Care
DX: A41.9 Sepsis, unspecified organism (principal); J96.01 Acute respiratory failure with hypoxia; L03.116 Cellulitis of left lower limb; L03.115 Cellulitis of right lower limb; E78.2 Mixed hyperlipidemia; I87.8 Other specified disorders of veins; Z96.41 Presence of insulin pump (external) (internal); E10.9 Type 1 diabetes mellitus without complications; Z20.822 Contact with and (suspected) exposure to COVID-19; Z88.0 Allergy status to penicillin; Z79.899 Other long term (current) drug therapy
CPT/HCPCS: 36415; 71275; 74177; 80048; 80053; 80202; 81003; 82565; 82803; 82947; 83605; 83690; 83735; 83880; 84484; 85025; 85027; 87040; 87635; 93005; 99285; J0696; J1650; J2270; J2405; J3370; J3371; Q9967

== ENCOUNTER → 2022-10-24 20:57 | Outpatient (BNV) | payer OTHER, MEDICAID, SELFPAY | PROVIDERS: Admitting Provider Student in an Organized Health Care Education/Training Program; Emergency Provider Internal Medicine; PCP Internal Medicine; Visit Provider Internal Medicine | DX: R94.31 Abnormal electrocardiogram [ECG] [EKG] (principal) | CPT/HCPCS: 93010 ==

== ENCOUNTER → 2022-10-24 21:38 | Outpatient (BNV) | payer OTHER, MEDICAID, SELFPAY | PROVIDERS: Emergency Provider Internal Medicine; PCP Internal Medicine; Visit Provider Student in an Organized Health Care Education/Training Program | DX: L03.116 Cellulitis of left lower limb (principal) | CPT/HCPCS: 99222; 99232; 99239; 99499 ==

== ENCOUNTER 2023-07-08 16:52 | Emergency (ER) | payer OTHER, SELFPAY ==
--- NOTE | ~2023-07-08 | XR_ITS ---
EXAMINATION: XR CHEST CLINICAL INFORMATION: Chest pain COMPARISON: CT angiogram chest 10/24/2022, chest radiograph 05/29/2022 TECHNIQUE: 2 views of the chest were obtained. FINDINGS: No significant abnormality is noted involving the heart, lungs, mediastinum, bony thorax or soft tissues. XR/XR chest 2V IMPRESSION: Unremarkable examination.
[2023-07-08 16:59] VITALS: BP 143/74; PULSE 90; RESP 20; TEMP 36.6; O2SAT 96; BMI 37.5
--- NOTE | 2023-07-08 17:02 | ED_ITS ---
HPI - General Adult General Chief complaint: Chest Pain Stated complaint: sob/congestion Time Seen by Provider: 07/08/23 23:28 Source: patient Mode of arrival: ambulatory Limitations: no limitations History of Present Illness HPI narrative: Patient has been coughing for last 3 days with headache running nose congestion low-grade fever no shortness a breath no other family member sick Related Data Home Medications ?Medication ?Instructions ?Recorded ?Confirmed amlodipine 10 mg tablet 10 mg PO BEDTIME 12/18/19 10/25/22 blood-glucose sensor #3 ea 12/18/19 blood-glucose transmitter #1 ea 12/18/19 carvedilol 3.125 mg tablet 1.5625 mg PO BID 12/18/19 10/25/22 insulin glargine 100 unit/mL (3 35 unit subcut BID PRN PUMP FAILURE 12/18/19 10/25/22 mL) subcutaneous pen insulin lispro 100 unit/mL 1 sliding scale dose subcut DAILY 12/18/19 10/25/22 subcutaneous pen lisinopril 20 1 tab PO DAILY 12/18/19 10/25/22 mg-hydrochlorothiazide 12.5 mg tablet pen needle, diabetic 32 gauge x #50 ea 12/18/19 simvastatin 20 mg tablet 20 mg PO BEDTIME 12/18/19 10/25/22 Previous Rx's ?Medication ?Instructions ?Recorded amoxicillin 875 mg-potassium 1 tab PO Q12H #20 tabs 10/27/22 clavulanate 125 mg tablet docusate sodium 100 mg capsule 100 mg PO BID #28 caps 10/27/22 (DOK) doxycycline hyclate 100 mg tablet 100 mg PO BID #20 tabs 10/27/22 benzonatate 200 mg capsule 200 mg PO TID PRN cough #20 caps 07/08/23 cefuroxime axetil 500 mg tablet 500 mg PO BID 7 days #14 tabs 07/08/23 mupirocin 2 % topical ointment 1 appl topical BID #15 grams 07/08/23 Allergies Allergy/AdvReac Type Severity Reaction Status Date / Time penicillin G Allergy Unknown Unknown Verified 07/08/23 17:04 Review of Systems 2 Review of Systems: Yes all other systems are reviewed and are negative PMFSH Past Medical History Medical History Mixed hyperlipidemia Essential hypertension Type 1 diabetes mellitus Varicose veins of right lower extremity with inflammation Varicose veins of left lower extremity with inflammation Social History Social History Household Members: Other Household Members Other:: self Housing: House Do you presently have visiting nurse or other home services: No Patient Tobacco Use Status: Never used Tobacco Advance Directives: No Advance Directives Information Provided: No service: No Physical Exam ED Vital Signs: Vital Signs - 24 hr 07/08/23 16:59 07/09/23 00:13 07/09/23 00:31 Temperature 97.9 F 97.7 F 97.7 F Pulse Rate 90 80 80 Respiratory Rate 20 18 18 Blood Pressure 143/74 H 159/72 H 159/72 H Pulse Oximetry 96 97 97 Oxygen Delivery Method Room Air Room Air Room Air BMI result Body Mass Index 37.5 Appearance: Alert. Oriented X3. No acute distress. ENT: Pharynx normal. Oral Mucosa moist nasal congestion++ Neck: Normal inspection. Neck supple. CVS: Normal heart rate and rhythm. Pulses normal. Respiratory: No respiratory distress. Equal air entry bilateral, no wheezing/rales/rhonchi Abdomen: Soft and nontender. Bowel sounds are present, Skin: Skin warm and dry. Normal skin color. Normal skin turgor. Extremities: No lower extremity edema. No calf tenderness Neuro: Oriented X 3. No motor deficit. Course Course Course Narrative: RME- 53-year-old male presents for evaluation of flu-like symptoms. He complains of cough sore throat, headache for the last 3 days. Plan for viral swabs, chest x-ray, strep throat test. Patient also complains of chest pain. He has multiple risk factors for coronary artery disease, plan for EKG and labs as well Medications Administered Discontinued Medications Generic Name Dose Route Start Last Admin Trade Name Freq PRN Reason Stop Dose Admin Benzonatate 200 mg 07/08/23 23:40 07/09/23 00:24 Benzonatate 100 Mg Capsule PO 07/08/23 23:41 200 mg ONCE ONE Administration Cefuroxime Axetil 500 mg 07/08/23 23:40 07/09/23 00:24 Cefuroxime Axetil 500 Mg Tablet PO 07/08/23 23:41 500 mg ONCE ONE Administration Medical Decision Making Medical Decision Making MDM Narrative: Patient has acute bronchitis COVID flu RSV negative chest x-ray negative strep negative will prescribe Ceftin and Tessalon Differential Diagnosis Differential Diagnoses: The differential diagnosis associated with the presentation includes Strep/flu/COVID/parainfluenza/pneumonia Lab Data [facility] Lab Attestation statement: I reviewed the patient's lab results. 07/08/23 17:28 07/08/23 17:28 Labs: Lab Results 07/08/23 07/08/23 Range/Units 17:27 17:28 WBC 11.7 H (4.8-10.8) X10*3/uL RBC 4.96 (4.60-5.80) X10*6/uL Hgb 14.1 (14.0-18.0) g/dl Hct 41.5 L (42.0-52.0) % MCV 83.7 (80.0-98.0) fL MCH 28.4 (27.0-33.0) pg MCHC 34.0 (31.0-36.0) g/dl RDW 13.0 (11.0-16.0) % Plt Count 279 (160-400) X10*3/uL MPV 9.6 (9.4-12.4) fL Immature Gran % (Auto) 0.4 (0.0-0.4) % Neut % (Auto) 63.2 (45-73) % Lymph % (Auto) 20.9 (20-40) % Cedar % (Auto) 11.2 H (2-11) % Eos % (Auto) 3.7 (0-4) % Baso % (Auto) 0.6 (0-2) % Lymph # (Auto) 2.4 (1.2-4.9) X10*3/uL Cedar # (Auto) 1.3 H (0.1-1.2) X10*3/uL Eos # (Auto) 0.4 (0.0-0.4) X10*3/uL Baso # (Auto) 0.1 (0.0-0.2) X10*3/uL Abs Immat Gran (auto) 0.05 H (0.00-0.03) X10*3/uL Absolute Neuts (auto) 7.4 (2.0-8.3) x10*3/uL Absolute Nucleated RBC 0.000 (0.0-0.012) X10*3/uL Nucleated RBC % (auto) 0.0 (0.0-0.2) /100WBC Sodium 141 (135-145) mmol/L Potassium 3.7 (3.3-5.1) mmol/L Chloride 107 (96-108) mmol/L Carbon Dioxide 25 (22-29) mmol/L Anion Gap 13 (12-20) BUN 24 H (9-16) mg/dL Creatinine 0.84 (0.5-1.4) mg/dL Estim Creat Clear Calc 147.7 Estimated GFR > 60 Random Glucose 113 (60-115) mg/dL Calcium 9.1 (8.4-10.2) mg/dL Total Bilirubin 0.3 (0.0-1.0) mg/dL AST 19 (5-37) U/L ALT 16 (0-40) U/L Alkaline Phosphatase 101 (39-117) U/L Troponin I High Sens < 2.7 D (<3.5-35.0) ng/L Total Protein 7.4 (6.5-8.0) g/dL Albumin 4.0 (3.5-5.0) g/dL Lipase 8 (8-78) U/L Influenza Type A (PCR) NEGATIVE (Negative) Influenza Type B (PCR) NEGATIVE (Negative) RSV RNA Qual (PCR) NEGATIVE (Negative) SARS-CoV-2 RNA (RT-PCR) NEGATIVE (Negative) S. pyogenes GrpA BLANCA Negative (Negative) Discharge Plan Discharge Clinical Impression: Acute bronchitis Patient Disposition: Home, Self-Care Instructions: Acute Bronchitis (ED) Additional Instructions: Take antibiotics as prescribed Cough drops as prescribed Local care of the wound on left forearm as advised Prescriptions: New benzonatate 200 mg capsule 200 mg PO TID PRN (Reason: cough) Qty: 20 0RF cefuroxime axetil 500 mg tablet 500 mg PO BID 7 Days Qty: 14 0RF mupirocin 2 % ointment 1 appl topical BID Qty: 15 0RF No Action doxycycline hyclate 100 mg tablet 100 mg PO BID Qty: 20 0RF amoxicillin-pot clavulanate 875-125 mg tablet 1 tab PO Q12H Qty: 20 0RF docusate sodium [DOK] 100 mg capsule 100 mg PO BID Qty: 28 0RF insulin glargine 100 unit/mL (3 mL) insulin pen 35 unit subcut BID PRN (Reason: PUMP FAILURE) Rx Instructions: ONLY FOR USE WHEN PUMP FAILS lisinopril-hydrochlorothiazide 20-12.5 mg tablet 1 tab PO DAILY amlodipine 10 mg tablet 10 mg PO BEDTIME simvastatin 20 mg tablet 20 mg PO BEDTIME carvedilol 3.125 mg tablet 1.5625 mg PO BID insulin lispro 100 unit/mL insulin pen 1 sliding scale dose subcut DAILY Rx Instructions: PT USES INSULIN PUMP WITH CONTINUOUS BASAL AND BOLUSES WITH MEALS Interventions: ED Discharge Assessment Last Done: 07/09/23 00:31 Discharge Date/Time: 07/09/23 00:33 Print Language: [place]
--- NOTE | 2023-07-08 17:05 | ECG_ITS ---
Test Reason : CHEST PAIN Blood Pressure : / mmHG Vent. Rate : 088 BPM Atrial Rate : 088 BPM P-R Int : 136 ms QRS Dur : 096 ms QT Int : 394 ms P-R-T Axes : 052 045 063 degrees QTc Int : 476 ms Normal sinus rhythm Normal ECG When compared with ECG of 24-OCT-2022 20:57, Nonspecific T wave abnormality no longer evident in Inferior leads Nonspecific T wave abnormality no longer evident in Anterolateral leads Referred By: Austen Guardado Electronically Signed By:ISSA MADSEN
[2023-07-08 17:33] LABS: MANUAL DIFF FLAG NO
[2023-07-08 17:36] LABS: Basophils Absolute Auto 0.1 X10*3/uL (0.0-0.2); Basophils Percent Auto 0.6 % (0-2); Eosinophils Absolute Auto 0.4 X10*3/uL (0.0-0.4); Eosinophils Percent Auto 3.7 % (0-4); Hematocrit 41.5 % (42.0-52.0); Hemoglobin 14.1 g/dl (14.0-18.0); Imm Gran Abs Auto 0.05 X10*3/uL (0.00-0.03); Imm Gran Pct Auto 0.4 % (0.0-0.4); Lymphocytes Absolute Auto 2.4 X10*3/uL (1.2-4.9); Lymphocytes Percent Auto 20.9 % (20-40); Mean Corpuscular Hemoglobin 28.4 pg (27.0-33.0); Mean Corpuscular Volume 83.7 fL (80.0-98.0); Mean Platelet Volume 9.6 fL (9.4-12.4); Monocytes Absolute Auto 1.3 X10*3/uL (0.1-1.2); Monocytes Percent Auto 11.2 % (2-11); Neutrophils Absolute Auto 7.4 x10*3/uL (2.0-8.3); Neutrophils Percent Auto 63.2 % (45-73); Platelet Count 279 X10*3/uL (160-400); Red Blood Count 4.96 X10*6/uL (4.60-5.80); White Blood Count 11.7 X10*3/uL (4.8-10.8)
[2023-07-08 17:43] LABS: IDNOW Serial# 08D9AD1C; Strep A Nucleic Acid Negative (Negative)
[2023-07-08 17:50] LABS: Alanine Aminotransferase 16 U/L (0-40); Alkaline Phosphatase 101 U/L (39-117); Anion Gap 13 (12-20); Aspartate Amino Transferase 19 U/L (5-37); Bilirubin Total 0.3 mg/dL (0.0-1.0); Blood Urea Nitrogen 24 mg/dL (9-16); Calcium 9.1 mg/dL (8.4-10.2); Carbon Dioxide 25 mmol/L (22-29); Chloride 107 mmol/L (96-108); Creatinine Clr Calc Pharmacy 147.7; Estimated Glomerular Filt Rate > 60; Glucose Random 113 mg/dL (60-115); Lipase 8 U/L (8-78); Potassium 3.7 mmol/L (3.3-5.1); Sodium 141 mmol/L (135-145); Total Protein 7.4 g/dL (6.5-8.0)
[2023-07-08 18:00] LABS: Troponin-I High Sensitivity < 2.7 ng/L (<3.5-35.0)
[2023-07-08 18:12] LABS: Influenza A PCR NEGATIVE (Negative); Influenza B PCR NEGATIVE (Negative); Resp Syncy Virus RNA Qual PCR NEGATIVE (Negative); SARS COV2 PCR INHOUSE NEGATIVE (Negative)
[2023-07-09 00:13] VITALS: BP 159/72; PULSE 80; RESP 18; TEMP 36.5; O2SAT 97
[2023-07-09] MEDS: Benzonatate 100 MG CAPSULE 200 MG PO (00:24)
[2023-07-09] MEDS: cefuroxime axetiL 500 MG TABLET PO (00:24)
[2023-07-09 00:31] VITALS: BP 159/72; PULSE 80; RESP 18; TEMP 36.5; O2SAT 97
== END 2023-07-09 00:33 | disposition home or self-care (01) ==
PROVIDERS: Physician Assistant; Emergency Provider Internal Medicine; PCP Internal Medicine
DX: J20.9 Acute bronchitis, unspecified (principal); I10 Essential (primary) hypertension; E10.9 Type 1 diabetes mellitus without complications
CPT/HCPCS: 0241U; 36415; 71046; 80053; 83690; 84484; 85025; 87651; 93005; 99283

== ENCOUNTER → 2023-07-08 17:05 | Outpatient (BNV) | payer OTHER, SELFPAY | PROVIDERS: Emergency Provider Internal Medicine; PCP Internal Medicine; Visit Provider Internal Medicine | DX: R07.9 Chest pain, unspecified (principal) | CPT/HCPCS: 93010 ==

== ENCOUNTER 2023-09-23 13:13 | Outpatient (AMB) | payer OTHER, SELFPAY ==
--- NOTE | 2023-09-23 13:21 | MHC.OFFVIS ---
Intake Visit Reasons: LE issues and numbness Intake Note: Patient presents for LE issues. Patient has bilateral discoloration. States his legs get weak. Patient says he does not have much feeling in his legs due to his neuropathy. He has issues with cellulitis and swelling off and on . Allergies penicillin G Allergy (Unknown, Verified 09/23/23 13:24) Unknown HPI HPI LE issues and numbness: Details: Very pleasant 53-year-old gentleman well known to us for previous venous disease. He had undergone both great saphenous vein ablation is back in 2019. Been doing relatively well since that time. He most recently was in the hospital for bouts of cellulitis. Reports he is doing somewhat better from that. Has changed jobs and now works for [employer]. He now presents to us for venous evaluation. It has been nearly 4 years since he is seen us. [facility] Medical History Mixed hyperlipidemia Essential hypertension Type 1 diabetes mellitus Varicose veins of right lower extremity with inflammation Varicose veins of left lower extremity with inflammation Social History Household Members: Other Household Members Other:: self Housing: House Do you presently have visiting nurse or other home services: No Patient Tobacco Use Status: Never used Tobacco service: No Review of Systems Const Reports as per HPI ENT Reports no additional complaints Card Denies chest pain, Denies chest pain at rest and Denies chest pain with activity Resp Denies chest congestion and Denies cough GI Reports no additional complaints Musc Details: pain over varicosities, aching of lower extremities, swelling, cramping, heaviness and tiredness, itching Denies abnormal gait Skin/Breast Reports pruritus and Denies wounds Neuro Reports no additional complaints and Denies abnormal gait Psych Denies no additional complaints Physical Exam Const General: cooperative, healthy appearing and comfortable Orientation/consciousness: oriented to person, oriented to place and oriented to time Neck Carotids: no bruits Chest Chest palpation & inspection: normal inspection of the chest and normal palpation of entire chest wall Resp Effort & Inspection: normal respiratory effort and able to speak in complete sentences Cardio Rate: regular rate Heart sounds: S1 normal heart sound present and S2 normal heart sound present Peripheral pulses: Peripheral pulses 2+ throughout GI Inspection: Yes normal to inspection Skin Other: +2 edema, large rope-like varicosities greater than 4 mm CEAP Classification C4 - skin color changes Ep - Etiology Primary As - superficial veins P - reflux General skin exam: dry skin Neuro General: oriented to person, oriented to place and oriented to time Extrem Right lower extremity: full ROM, normal capillary refill and edema Left lower extremity: full ROM, normal capillary refill and edema Psych Mental Status: mental status grossly normal Assessment & Plan Assessment & Plan (1) Varicose veins of left lower extremity with inflammation: Comment: 02/25/2020 - left great saphenous vein Cyanoacralate ablation Code(s): I83.12 - Varicose veins of left lower extremity with inflammation Category: Medical Plan: In short patient has some swelling of the lower extremities along with skin changes. It has been nearly 4 years since we have done his last procedure. Would like to re-evaluate his overall venous status. I have taken the liberty of ordering repeat venous testing and he will follow up with us after testing. Thank you for allowing us to assist in his care. (2) Varicose veins of right lower extremity with inflammation: Comment: 03/10/2020 - right great saphenous vein Cyanoacralate ablation Code(s): I83.11 - Varicose veins of right lower extremity with inflammation Category: Medical Plan: See above Orders: Orders US venous duplex LE BI 1 Week I83.12 - Varicose veins of left lower extremity with inflammation Coding Level of Care Code New Pt Level 4 (57390) Diagnoses Varicose veins of left lower extremity with inflammation I83.12 Varicose veins of right lower extremity with inflammation I83.11
== END 2023-09-23 13:55 | disposition home or self-care (01) ==
PROVIDERS: PCP Internal Medicine; Visit Provider Surgery Vascular Surgery
DX: I83.12 Varicose veins of left lower extremity with inflammation (principal); I83.11 Varicose veins of right lower extremity with inflammation
CPT/HCPCS: 99203

== ENCOUNTER → 2023-09-23 13:13 | Outpatient (BNVA) | payer OTHER, SELFPAY | PROVIDERS: PCP Internal Medicine; Visit Provider Surgery Vascular Surgery ==

== ENCOUNTER 2023-10-01 10:26 | Outpatient (REF) | payer OTHER, SELFPAY ==
--- NOTE | ~2023-10-01 | US_ITS ---
EXAMINATION: US LOWER EXTREMITY VENOUS (REFLUX EXAM), BILATERAL CLINICAL INDICATION: Chronic venous insufficiency with lower extremity varicose veins with inflammation. History of bilateral great saphenous vein ablations COMPARISON: Ultrasound from 02/23/2019 TECHNIQUE: Color flow triplex imaging and compression Doppler was performed to evaluate both the deep and the superficial systems bilaterally. To evaluate the superficial system, the examination was performed in the upright position. Color-flow Doppler ultrasound and compression ultrasound were utilized. In addition, maneuvers were utilized to demonstrate reflux. FINDINGS: 1. DEEP VENOUS ULTRASOUND OF THE RIGHT LOWER EXTREMITY: Common Femoral Vein: Compressible, normal respiratory variation and augmented flow. Femoral Vein: Compressible, normal color flow and augmentation. Popliteal Vein: Compressible, normal augmentation. Deep Reflux: There is no evidence of reflux in the deep system in either the common femoral vein, superficial femoral or the popliteal vein. There is no evidence of a Escobedo's cyst. 2. SUPERFICIAL ULTRASOUND WITH DOPPLER OF RIGHT LOWER EXTREMITY: GREAT SAPHENOUS VEIN: Saphenofemoral Junction: 0.6 cm; Reflux: 0 ms Proximal Thigh: 0.6 cm; Reflux: 2244 ms Mid Thigh: 0.3 cm; occluded Above Knee: 0.2 cm; Reflux: 2152 ms At Knee: 0.3 cm; Reflux: 2612 ms Below Knee: 0.4 cm; Reflux: 2284 ms Mid Calf: 0.4 cm; Reflux: 1840 ms Ankle: 0.3 cm; Reflux: 1948 ms DUPLICATED MEDIAL GREAT SAPHENOUS VEIN: Diameter: None imaged Reflux: NA DUPLICATED LATERAL GREAT SAPHENOUS VEIN: Diameter: None imaged Reflux: NA SMALL SAPHENOUS VEIN: Saphenopopliteal Junction: 0.3 cm; Reflux: 0 ms Proximal: 0.3 cm; Reflux: 0 ms Distal: 0.3 cm; Reflux: 0 ms VEIN OF GIACOMINI: Size: NA Reflux: NA PERFORATORS: Location: Posterior distal calf extending into the small saphenous vein Size: 0.6 cm Reflux: 1128 ms PERFORATORS: Location: Proximal and distal calf extending into the great saphenous vein Size: 0.2-0.4 cm Reflux: 892-1888 ms VARICOSITIES: Location: Posterior distal calf extending off the small saphenous vein Size: 0.3 cm Reflux: 1320 ms VARICOSITIES: Location: Proximal, mid and distal thigh off the great saphenous vein. Mid and distal calf off the great saphenous vein Size: Ranging in size from 0.3 to 0.5 cm Reflux: Ranging from 896 ms to 3048 ms 3. DEEP VENOUS ULTRASOUND OF THE LEFT LOWER EXTREMITY: Common Femoral Vein: Compressible, normal respiratory variation and augmented flow. Femoral Vein: Compressible, normal color flow and augmentation. Popliteal Vein: Compressible, normal augmentation. Deep Reflux: There is no evidence of reflux in the deep system in either the common femoral vein, superficial femoral or the popliteal vein. There is no evidence of a Escobedo's cyst. 4. SUPERFICIAL ULTRASOUND WITH DOPPLER OF LEFT LOWER EXTREMITY: GREAT SAPHENOUS VEIN: Saphenofemoral Junction: 0.7 cm; Reflux: 984 ms Proximal Thigh: 0.5cm, occluded Mid Thigh: 0.4 cm; occluded Above Knee: 0.2 cm; Reflux: 2384 ms At Knee: 0.2 cm; Reflux: 2200 ms Below Knee: 0.5 cm; Reflux: 1332 ms Mid Calf: 0.5 cm; Reflux: 1608 ms Ankle: 0.3 cm; Reflux: 1892 ms DUPLICATED MEDIAL GREAT SAPHENOUS VEIN: Diameter: None imaged Reflux: NA DUPLICATED LATERAL GREAT SAPHENOUS VEIN: Diameter: 0.4 cm Reflux: None SMALL SAPHENOUS VEIN: Saphenopopliteal Junction: 0.5 cm; Reflux: 1328 ms Mid: 0.4 cm; Reflux: 604 ms Distal: 0.2 cm; Reflux: 0 ms VEIN OF GIACOMINI: Size: NA Reflux: NA PERFORATORS: Location: Mid thigh extending to the great saphenous vein Size: 0.3 cm Reflux: 2120 ms VARICOSITIES: Location: Mid thigh, knee, proximal, mid and distal calf off the great saphenous vein Size: Ranging in size from 0.3 to 0.7 cm Reflux: Ranging from 1356 ms to 2836 ms US/US venous duplex LE BI IMPRESSION: Right: Partially recanalized flow within the right great saphenous vein in the proximal thigh with reflux. Residual great saphenous vein throughout the calf with reflux as described above. Extensive varicose veins throughout the thigh and calf as described above. There are multiple wood gang sawyer veins within the calf as well with reflux as described above Left: Occlusion of the left great saphenous vein within the proximal and mid to thigh. Residual great saphenous vein from the distal thigh through the calf with severe reflux as described above. There is severe reflux within the left small saphenous vein. Multiple varicose veins throughout the thigh and calf with reflux as described above
== END 2023-10-01 10:27 | disposition home or self-care (01) ==
LOC: HO.US 10:26
PROVIDERS: PCP Internal Medicine; Visit Provider Surgery Vascular Surgery
DX: I83.12 Varicose veins of left lower extremity with inflammation (principal)
CPT/HCPCS: 93970

== ENCOUNTER 2023-12-09 10:58 | Outpatient (AMB) | payer OTHER, SELFPAY ==
--- NOTE | 2023-12-09 11:03 | MHC.OFFVIS ---
Intake Visit Reasons: follow up s/p 10/01/23 Intake Note: Patient presents for follow up . Patient has no complaints. Allergies penicillin G Allergy (Unknown, Verified 12/09/23 11:07) Unknown [facility] up [facility] 10[facility]01/23: Details: Very pleasant 53-year-old gentleman well known to us for previous venous disease. He had prior venous ablation is back in 2019. Most recently been admitted for recurrent bouts of cellulitis. 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 He has used compression with minimal relief. He now presents for follow-up with venous insufficiency testing. 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 Social History Household Members: Other Household Members Other:: self Housing: House Do you presently have visiting nurse or other home services: No Patient Tobacco Use Status: Never used Tobacco service: No Review of Systems Const Reports as per HPI ENT Reports no additional complaints Card Denies chest pain, Denies chest pain at rest and Denies chest pain with activity Resp Denies chest congestion and Denies cough GI Reports no additional complaints Musc Details: pain over varicosities, aching of lower extremities, swelling, cramping, heaviness and tiredness, itching Denies abnormal gait Skin/Breast Reports pruritus and Denies wounds Neuro Reports no additional complaints and Denies abnormal gait Psych Denies no additional complaints Physical Exam Const General: cooperative, healthy appearing and comfortable Orientation/consciousness: oriented to person, oriented to place and oriented to time Neck Carotids: no bruits Chest Chest palpation & inspection: normal inspection of the chest and normal palpation of entire chest wall Resp Effort & Inspection: normal respiratory effort and able to speak in complete sentences Cardio Rate: regular rate Heart sounds: S1 normal heart sound present and S2 normal heart sound present Peripheral pulses: Peripheral pulses 2+ throughout GI Inspection: Yes normal to inspection Skin Other: +2 edema, CEAP Classification C4 - skin color changes Ep - Etiology Primary As - superficial veins P - reflux General skin exam: dry skin Neuro General: oriented to person, oriented to place and oriented to time Extrem Right lower extremity: full ROM, normal capillary refill and edema Left lower extremity: full ROM, normal capillary refill and edema Psych Mental Status: mental status grossly normal Results Reviewed Results Reviewed: Brief summary of venous insufficiency testing is as follows: right great saphenous vein: Positive right small saphenous vein: negative right accessory vein: none present left great saphenous vein: Positive left small saphenous vein: Positive left accessory vein: none present Please note there is no evidence of any venous aneurysms or significant tortuosity Assessment & Plan Assessment & Plan (1) Varicose veins of right lower extremity with inflammation: Comment: 03/10/2020 - right great saphenous vein Cyanoacralate ablation Code(s): I83.11 - Varicose veins of right lower extremity with inflammation Category: Medical Plan: This patient has varicose veins with inflammation. They continue to be a source of discomfort for the patient. The patient has tried conservative treatment with compression, leg elevation and exercise program for over 3 months time. They have been compliant with all treatment. This has provided minimal relief for the patient. I do not anticipate this course of treatment will alter the underlying etiology. The patient has been scheduled for lower extremity venous treatment inclusive of --- right great saphenous vein ablation. Risks, benefits, and complications of this procedure has been discussed in detail with the patient including but not limited to bleeding, infection, and the development of a DVT. The patient has demonstrated a clear understanding and has consented. We will schedule the patient as soon as possible. Thank you for allowing us to participate in this patient's care. If there are any questions or concerns please do not hesitate to contact us. (2) Varicose veins of left lower extremity with inflammation: Comment: 02/25/2020 - left great saphenous vein Cyanoacralate ablation Code(s): I83.12 - Varicose veins of left lower extremity with inflammation Category: Medical Plan: Will need to treat left after we treat right. Coding Level of Care Code Est Pt Level 4 (32552) Diagnoses Varicose veins of right lower extremity with inflammation I83.11 Varicose veins of left lower extremity with inflammation I83.12
== END 2023-12-09 11:34 | disposition home or self-care (01) ==
PROVIDERS: PCP Internal Medicine; Visit Provider Surgery Vascular Surgery
DX: I83.11 Varicose veins of right lower extremity with inflammation (principal); I83.12 Varicose veins of left lower extremity with inflammation
CPT/HCPCS: 99214

== ENCOUNTER → 2023-12-09 10:58 | Outpatient (BNVA) | payer OTHER, SELFPAY | PROVIDERS: PCP Internal Medicine; Visit Provider Surgery Vascular Surgery | DX: I83.11 Varicose veins of right lower extremity with inflammation (principal); I83.12 Varicose veins of left lower extremity with inflammation | CPT/HCPCS: 99212 ==